=== PATIENT | female | born 1955 | race Caucasian/White ===

== ENCOUNTER → 2017-10-20 | Outpatient (CLI) | payer OTHER ==
[2017-10-20 11:47] LABS: HCT 39.8 % (34.0-46.0); HGB 13.4 gm/dL (11.4-16.0); MCH 30.1 pg (25.0-35.0); MCHC 33.7 g/dL (31.0-37.0); MCV 89.2 fL (80.0-100.0); Mean Platelet Volume 6.9; Platelet Count 301 k/uL (150-450); RBC 4.47 m/uL (3.80-5.40); RDW 13.3 % (11.5-15.5)
[2017-10-20 11:53] LABS: Potassium 4.8 mmol/L (3.5-5.1)
== END | disposition home or self-care (01) ==
LOC: LABPAT 11:07
PROVIDERS: ATTEND Internal Medicine Interventional Cardiology
DX: Z01.812 Encounter for preprocedural laboratory examination (principal); I25.810 Atherosclerosis of coronary artery bypass graft(s) without angina pectoris
CPT/HCPCS: 36415; 80051; 82565; 84520; 85027

== ENCOUNTER 2017-10-27 10:35 | Day surgery (SDC) | payer OTHER ==
[~2017-10-27 10:35] MED LIST: ALPRAZolam 0.25 MG TAB PO PRN; ALPRAZolam 0.5 MG TAB PO PRN; ASPIRIN 325 MG TAB PO STA; ATORVASTATIN 80 MG TAB PO STA; NITROGLYCERIN SL TABS 0.4 MG TAB SUBLINGUAL PRN; SODIUM CHLORIDE 0.9% 1,000 ML in EMPTY BAG 1 BAG IV ONE
[2017-10-27] MEDS ORDERED: SODIUM CHLORIDE 0.9% 1,000 ML IV ONE (10:55)
[2017-10-27] MEDS ORDERED: fentaNYL (PF) 50 MCG/ML 2 ML AMP ONE (12:53)
[2017-10-27] MEDS ORDERED: fentaNYL (PF) 50 MCG/ML 2 ML AMP IVP ONE (12:54)
[2017-10-27] MEDS ORDERED: LIDOCAINE 2% INJ 20 MG/ML SQ ONE (12:58)
[2017-10-27] MEDS ORDERED: IOPAMIDOL-370 125ML BTL INJ ONE (13:20)
[2017-10-27] MEDS ORDERED: IOPAMIDOL-370 100ML BTL INJ ONE (13:26)
[2017-10-27] MEDS ORDERED: RX INFO: IV CONTRAST WAS GIVEN 1 EACH MISC MISCELLANE PRN (13:38)
[2017-10-27] MEDS ORDERED: SODIUM CHLORIDE 0.9% 1,000 ML IV SCH (13:45)
--- NOTE | 2017-10-27 14:57 | CC ---
CARDIAC CATHETERIZATION REPORT Mrs. Linton is a 62-year-old female with known history of hypertension, hyperlipidemia, history of coronary artery disease, status post coronary artery bypass grafting in 2001, who since August has been complaining of chest discomfort, exertional in pattern. In view of that, recommendation was made regarding cardiac catheterization. The procedures as well as risks and complications were discussed with the patient who is in full understanding and agreement. PROCEDURE: Patient was brought to [facility] in a fasting semisedated state after receiving fentanyl and Benadryl and achieving moderate conscious sedated state. Using Xylocaine anesthesia and Seldinger technique, a 6-Nigerien sheath was introduced in the right femoral artery. Selective right and left coronary angiography performed using 6-Nigerien 4 bend right and left Natanael catheter multiple views of the coronary artery including hemiaxial views were obtained. Following that, the 6-Nigerien right Natanael catheter was used to cannulate the saphenous vein graft to the diagonal branch and the SHELLY. Images of the grafts were obtained. Following that, a 6-Nigerien tight pigtail catheters was introduced into the left ventricle and a 30 degree SESAY view of the left ventricle was obtained. Following that, catheter and sheaths were removed. Hemostasis was obtained with deployment of an Angio-Seal. There was no immediate complications. Patient is returned to her room in stable condition. FINDINGS: Left main: This vessel is totally occluded proximally with no antegrade flow. Right coronary artery: This vessel is totally occluded proximally with ipsilateral collaterals. Here is slow flow in the distal vessel. Saphenous vein graft to diagonal branch: The proximal distal anastomotic site are patent. The flow into the graft is brisk. There is no evidence of high-grade stenosis. DE JESUS to the left circumflex: The distal anastomotic site is patent. The flow into the OM is brisk. There is no evidence of high-grade stenosis. SHELLY to the LAD: The distal anastomotic site is patent. The flow in the LAD is brisk. There is no evidence of high-grade stenosis. Left ventriculogram: Left ventriculogram was performed in 30 degree SESAY view and revealed normal left ventricular size and systolic function. Ejection fraction is 55%. There was no significant mitral regurgitation. HEMODYNAMICS: There was no gradient across the aortic valve. The left ventricular end-diastolic pressure is 14-18 mmHg. CONCLUSION: 1. Totally occluded left main with no antegrade flow. 2. Chronically occluded right coronary artery with ipsilateral collaterals. 3. Patent DE JESUS to the left circumflex and patent SHELLY to the LAD. 4. Patent saphenous vein graft to diagonal branch. 5. Normal left ventricular size and systolic function. RECOMMENDATION: In view of the findings and anatomy, I recommend continue medical therapy and attempted angioplasty and stenting for chronic total occlusion of the right coronary artery. Those findings and recommendations were discussed with the patient and her family who are in full understanding and agreement. Duration of the procedure: 33 minutes. MMSHANNON / IJN: [id number] /
--- NOTE | 2017-10-27 15:03 | LTR ---
DATE OF SERVICE: 10/27/[address] Trujillo: I had he pleasure of performing coronary angiography on Mrs Linton at [facility] on October 27 and a full copy of procedure note will be forwarded to you. In brief, she was found to have severe triple-vessel disease with chronic occlusion of her left main and total occlusion of her right coronary artery which is new since 2001. Her bypass grafts are patent. At this time, I will continue medical therapy and I would recommend to proceed with an attempt at recanalization for chronic occluded right coronary artery. Depending on her progress, further recommendations will be made. Thank you again for allowing me to participate in her care. Please feel free to call for any questions. Sincerely, CINDY / FABIAN: [id number] /
[2017-10-27 19:15] VITALS: BP 126/60; PULSE 70; RESP 14; TEMP 98
[2017-10-27] MEDS ORDERED: ATORVASTATIN 40 MG TAB PO SCH (21:00)
[2017-10-27] MEDS ORDERED: METOPROLOL TARTRATE 50 MG TAB PO SCH (21:00)
[2017-10-27] MEDS ORDERED: LISINOPRIL 5 MG TAB PO SCH (21:00)
[2017-10-27] MEDS ORDERED: FAMOTIDINE 20 MG TAB PO SCH (21:00)
[2017-10-28] MEDS ORDERED: GLUCOSAMINE SULFATE PO SCH (09:00)
[2017-10-28] MEDS ORDERED: ISOSORBIDE MONONITRATE ER 60 MG TAB.ER.24H PO SCH (09:00)
[2017-10-28] MEDS ORDERED: ASPIRIN 325 MG TAB PO SCH (09:00)
[2017-10-28] MEDS ORDERED: MULTIVITAMINS, THERA 1 EACH TAB PO SCH (12:00)
== END 2017-10-27 20:35 | disposition home or self-care (01) ==
LOC: CATHCVL 10:35 → 3OBS 13:28 → CATHCVL 20:35
PROVIDERS: ATTEND Internal Medicine Interventional Cardiology
DX: I25.110 Atherosclerotic heart disease of native coronary artery with unstable angina pectoris (principal); I25.82 Chronic total occlusion of coronary artery; I10 Essential (primary) hypertension; E78.2 Mixed hyperlipidemia; Z95.1 Presence of aortocoronary bypass graft; I65.23 Occlusion and stenosis of bilateral carotid arteries; I73.9 Peripheral vascular disease, unspecified; Z82.49 Family history of ischemic heart disease and other diseases of the circulatory system; Z79.82 Long term (current) use of aspirin; Z79.899 Other long term (current) drug therapy
CPT/HCPCS: 93459; C1760; C1769 ×2; C1894; J2001; J3010; Q9967 ×2

== ENCOUNTER 2018-03-04 05:05 | Observation (INO) | payer OTHER ==
--- NOTE | 2018-03-04 05:59 | ED ---
GI Bleed HPI - General Chief complaint: GI Bleed Stated complaint: GI bleed Time Seen by Provider: 03/04/18 05:12 Source: EMS Mode of arrival: EMS Limitations: no limitations - History of Present Illness Initial comments: Jacqueline Michelle is a 62-year-old female who is transferred to our facility from an outside hospital for further evaluation of high risk GI bleeding. The patient has a past medical history most significant for coronary artery disease , status post CABG and a recent cardiac catheterization with 3 stents placed in her RCA at [facility]. After the initial stent placement patient had persistent left arm pain and a repeat cardiac catheterization was performed. Patient was then prescribed Brilinta, he received her first dose on along with her very last dose of Plavix. The patient has continued taking Brilenta and 81mg ASA daily since that time. Patient was discharged from the hospital on March 03. Patient port that she was feeling well at that time. She notes that around 6 PM on Tuesday evening she had a bloody bowel movement. She described it as dark red blood with clots. She has no history of GI bleeding in the past. Patient's most recent colonoscopy was approximately 4 years ago, she was told that it was normal and she was to follow -up in 10 years. Patient does have a history of diverticulitis but has not been having any abdominal pain or discomfort recently. The patient denies any lightheadedness, chest pain, palpitations or shortness of breath. She does report some transient nausea prior to owing to the outside hospital. Patient reports that she's had 3-4 bloody bowel movements between 6 PM on Tuesday evening and 1 AM on Tuesday morning. Upon arrival to our emergency department she has not had a bloody bowel movement approximately 5 hours. She's not expressing abdominal pain or discomfort. - Related Data Home Medications Medication Instructions Recorded Confirmed Aspirin 325 mg PO QAM 10/21/17 10/27/17 Atorvastatin [Lipitor] 40 mg PO HS 10/21/17 10/27/17 Glucosamine Sulfate 1 tab PO DAILY 10/21/17 10/27/17 Lisinopril [Zestril] 5 mg PO HS 10/21/17 10/27/17 Metoprolol Tartrate [Lopressor] 50 mg PO BID 10/21/17 10/27/17 Multivitamins, Thera [Multivitamin 1 tab PO DAILY 10/21/17 10/27/17 (formulary)] Nitroglycerin Sl Tabs [Nitrostat] 0.4 mg PO DIRECTED 10/21/17 10/27/17 Ranitidine HCl [Zantac] 150 mg PO BID 10/21/17 10/27/17 Previous Rx's Medication Instructions Recorded Isosorbide Mononitrate [Isosorbide 60 mg PO QAM #0 10/27/17 Mononitrate ER] Allergies Allergy/AdvReac Type Severity Reaction Status Date / Time latex Allergy Rash/Hives Verified 10/21/17 16:21 Review of Systems ROS Statement: Those systems with pertinent positive or pertinent negative responses have been documented in the HPI. ROS Other: All systems not noted in ROS Statement are negative. Past Medical History History of Any Multi-Drug Resistant Organisms: None Reported Past Surgical History: Coronary Bypass/CABG Additional Past Surgical History / Comment(s): triple by pass 2001, [address] Past Psychological History: Anxiety Smoking Status: Never smoker Past Alcohol Use History: Occasional Past Drug Use History: None Reported General Exam - General Exam Comments Initial Comments: GENERAL: Patient is well-developed and well-nourished. Patient is nontoxic and well- hydrated and is in no distress. HENT: Normocephalic, Atraumatic. Neck is soft and supple. No significant lymphadenopathy is noted. Oropharynx is clear. Moist mucous membranes. Neck has full range of motion without eliciting any pain. EYES: The sclera were anicteric and conjunctiva were pink and moist. Extraocular movements were intact and pupils were equal round and reactive to light. Eyelids were unremarkable. PULMONARY: Unlabored respirations. Good breath sounds bilaterally. No audible rales rhonchi or wheezing was noted. CARDIOVASCULAR: There is a regular rate and rhythm without any murmurs gallops or rubs. ABDOMEN: Soft and nontender with normal bowel sounds. Bright red blood per rectum SKIN: Skin is clear with no lesions or rashes and otherwise unremarkable. Bruising on right wrist and in bilateral groins consistent with recent arterial access NEUROLOGIC: Patient is alert and oriented x3. Cranial nerves II through XII are grossly intact. Motor and sensory are also intact. Normal speech, volume and content. Symmetrical smile. MUSCULOSKELETAL: Normal extremities with adequate strength and full range of motion. No lower extremity swelling or edema. No calf tenderness. LYMPHATICS: No significant lymphadenopathy is noted PSYCHIATRIC: Normal psychiatric evaluation. Limitations: no limitations Limitations: no limitations Course Vital Signs 03/04/18 03/04/18 03/04/18 05:06 05:20 05:40 Temperature 99 F Pulse Rate 85 73 83 Respiratory 16 16 11 L Rate Blood Pressure 138/76 138/76 158/75 O2 Sat by Pulse 96 97 97 Oximetry 03/04/18 03/04/18 06:40 06:58 Temperature Pulse Rate 78 89 Respiratory 16 16 Rate Blood Pressure 155/72 O2 Sat by Pulse 97 97 Oximetry Medical Decision Making - Medical Decision Making Patient care was discussed with the transferring physician prior to transfer Hemodynamically stable 62-year-old female with a lower GI bleed currently on Brilinta and aspirin - patient has established care with cardiology at our hospital therefore requested transfer Outside labs were reviewed CBC and CMP were reviewed, hemoglobin was noted to be 13.1, AST mildly elevated at 69, INR 1.05 Repeat labs, type and screen were obtained Rectal exam with bright red blood per rectum Repeat labs reveal a hemoglobin of 11.9, patient did receive IV fluids so this is likely related to blood loss as well as dilutional, we will trend his hemoglobin Troponin was obtained here and was noted be elevated, this is likely related to the 2 cardiac catheterizations the patient had during the week, patient has not had any chest pain, palpitations or shortness of breath, no signs of acute coronary syndrome Patient care was discussed with cardiology who recommended the patient have an emergent GI consult, recommends holding oral anticoagulation this morning would like to resume this evening if it is safe to do so Patient care was discussed with the psychiatric social worker supervisor Dr. Sabillon who accepts the patient to the ICU for lower GI bleeding Patient care was discussed with the [facility] hospitalist who accepts the admission - Lab Data Result diagrams: 03/04/18 05:54 03/04/18 05:54 Lab Results 03/04/18 03/04/18 03/04/18 Range/Units 05:54 05:54 05:54 WBC 10.3 (3.8-10.6) k/uL RBC 4.07 (3.80-5.40) m/uL Hgb 11.9 (11.4-16.0) gm/dL Hct 35.6 (34.0-46.0) % MCV 87.4 (80.0-100.0) fL MCH 29.3 (25.0-35.0) pg MCHC 33.6 (31.0-37.0) g/dL RDW 13.9 (11.5-15.5) % Plt Count 185 (150-450) k/uL Neutrophils % 83 % Lymphocytes % 11 % Monocytes % 5 % Eosinophils % 1 % Basophils % 0 % Neutrophils # 8.5 H (1.3-7.7) k/uL Lymphocytes # 1.1 (1.0-4.8) k/uL Monocytes # 0.5 (0-1.0) k/uL Eosinophils # 0.1 (0-0.7) k/uL Basophils # 0.0 (0-0.2) k/uL PT 10.6 (9.0-12.0) sec INR 1.1 (<1.2) APTT 20.5 L (22.0-30.0) sec Sodium 138 (137-145) mmol/L Potassium 3.7 (3.5-5.1) mmol/L Chloride 108 H (98-107) mmol/L Carbon Dioxide 26 (22-30) mmol/L Anion Gap 4 mmol/L BUN 18 H (7-17) mg/dL Creatinine 0.76 (0.52-1.04) mg/dL Est GFR (CKD-EPI)AfAm >90 (>60 ml/min/1.73 sqM) Est GFR (CKD-EPI)NonAf 84 (>60 ml/min/1.73 sqM) Glucose 106 H (74-99) mg/dL Calcium 8.6 (8.4-10.2) mg/dL Total Bilirubin 0.9 (0.2-1.3) mg/dL AST 52 H (14-36) U/L ALT 30 (9-52) U/L Alkaline Phosphatase 58 (38-126) U/L Troponin I (0.000-0.034) ng/mL Total Protein 5.5 L (6.3-8.2) g/dL Albumin 3.1 L (3.5-5.0) g/dL Blood Type Blood Type Recheck Antibody Screen Spec Expiration Date 03/04/18 03/04/18 Range/Units 05:54 05:54 WBC (3.8-10.6) k/uL RBC (3.80-5.40) m/uL Hgb (11.4-16.0) gm/dL Hct (34.0-46.0) % MCV (80.0-100.0) fL MCH (25.0-35.0) pg MCHC (31.0-37.0) g/dL RDW (11.5-15.5) % Plt Count (150-450) k/uL Neutrophils % % Lymphocytes % % Monocytes % % Eosinophils % % Basophils % % Neutrophils # (1.3-7.7) k/uL Lymphocytes # (1.0-4.8) k/uL Monocytes # (0-1.0) k/uL Eosinophils # (0-0.7) k/uL Basophils # (0-0.2) k/uL PT (9.0-12.0) sec INR (<1.2) APTT (22.0-30.0) sec Sodium (137-145) mmol/L Potassium (3.5-5.1) mmol/L Chloride (98-107) mmol/L Carbon Dioxide (22-30) mmol/L Anion Gap mmol/L BUN (7-17) mg/dL Creatinine (0.52-1.04) mg/dL Est GFR (CKD-EPI)AfAm (>60 ml/min/1.73 sqM) Est GFR (CKD-EPI)NonAf (>60 ml/min/1.73 sqM) Glucose (74-99) mg/dL Calcium (8.4-10.2) mg/dL Total Bilirubin (0.2-1.3) mg/dL AST (14-36) U/L ALT (9-52) U/L Alkaline Phosphatase (38-126) U/L Troponin I 6.410 H* (0.000-0.034) ng/mL Total Protein (6.3-8.2) g/dL Albumin (3.5-5.0) g/dL Blood Type A Negative Blood Type Recheck No Antibody Screen NEGATIVE Spec Expiration Date 03/07/2018 - 9993 - EKG Data EKG Comments: EKG obtained at 6 AM, rate of 76, rhythm is sinus, there is a normal axis, there is right bundle-branch block, MA is 128, QRS is 120, QTC is 46. There are no previous EKGs for comparison. Disposition Clinical Impression: Lower GI bleed, Anticoagulated Disposition: ADMITTED IP TO THIS HOSP Condition: Stable
[2018-03-04 06:12] LABS: Basophils % (A) 0 %; Eosinophils # (A) 0.1 k/uL (0-0.7); Eosinophils % (A) 1 %; HCT 35.6 % (34.0-46.0); HGB 11.9 gm/dL (11.4-16.0); Lymphocytes # (A) 1.1 k/uL (1.0-4.8); Lymphocytes % (A) 11 %; MCH 29.3 pg (25.0-35.0); MCHC 33.6 g/dL (31.0-37.0); MCV 87.4 fL (80.0-100.0); Mean Platelet Volume 6.6; Monocytes # (A) 0.5 k/uL (0-1.0); Monocytes % (A) 5 %; Neutrophils # (A) 8.5 k/uL (1.3-7.7); Neutrophils % (A) 83 %; Platelet Count 185 k/uL (150-450); RBC 4.07 m/uL (3.80-5.40); RDW 13.9 % (11.5-15.5); WBC 10.3 k/uL (3.8-10.6)
[2018-03-04 06:29] LABS: INR 1.1 (<1.2); Prothrombin Time 10.6 sec (9.0-12.0)
[2018-03-04 06:31] LABS: ALT 30 U/L (9-52); AST 52 U/L (14-36); Albumin 3.1 g/dL (3.5-5.0); Alkaline Phosphatase 58 U/L (38-126); Anion Gap 4 mmol/L; Blood Urea Nitrogen 18 mg/dL (7-17); Calcium 8.6 mg/dL (8.4-10.2); Carbon Dioxide 26 mmol/L (22-30); Chloride 108 mmol/L (98-107); Glucose 106 mg/dL (74-99); Partial Thromboplastin Time 20.5 sec (22.0-30.0); Potassium 3.7 mmol/L (3.5-5.1); Sodium 138 mmol/L (137-145); Total Bilirubin 0.9 mg/dL (0.2-1.3); Total Protein 5.5 g/dL (6.3-8.2)
[2018-03-04] MEDS ORDERED: NALOXONE 0.4 MG/ML 1 ML VIAL IV PRN (07:30)
[2018-03-04 09:27] LABS: Glucose,Whole Blood 100 mg/dL (75-99)
--- NOTE | 2018-03-04 10:18 | P.CNPUL ---
History of Present Illness Consult date: 03/04/18 Requesting physician: Zahira Shrestha Reason for consult: other (Critical care management) Chief complaint: Bright red bleeding from the rectum History of present illness: This is a very pleasant 62-year-old female patient who follows with Dr. Montesinos as her primary care physician. She has a history of hypertension, hyperlipidemia, gastroesophageal reflux disease. Chest has a significant history of coronary artery disease and is status post coronary artery bypass grafting in 2001. She had recently undergone cardiac catheterization in October 2017 and was found to have a totally occluded left main with no antegrade flow, chronically occluded right coronary artery with ipsilateral collaterals, patent DE JESUS to the circumflex and patent SHELLY to LAD, patent saphenous vein graft to diagonal branch. Normal left ventricular size and systolic function. An attempt to open the RCA was unsuccessful. She was subsequently referred to [facility] and on 01/02/2018 underwent a rotator procedure to open the coronary artery. On 03/01/18 she received 3 stent placements. Details of which are not available at this time. She had ongoing left arm discomfort and on 03/02/2018 she had another catheterization all stents were patent. She was initiated on aspirin and Mylanta. She was also given 1 dose of Plavix on 2017. She presented to [facility] last evening after having 6 bright red bowel movements at home. She had a seventh one earlier today. Based on the GI bleeding she was transferred here to the emergency room. Hemoglobin 11.9. She is seen today in consultation in the intensive care unit. She is currently awake and alert in no acute distress. She denies any chest pain, palpitations lightheadedness or dizziness. Her troponin is found to be 6.41. EKG shows a right bundle branch block pattern. She denies any shortness of breath, cough or congestion. She is maintaining O2 saturations in the mid 90s on room air. She's afebrile. Currently hemodynamically stable. She does have a history of diverticulosis. She had a colonoscopy 4 years ago that was reported as normal according to the patient. She has been typed and crossmatched. Review of Systems Constitutional: Reports fatigue, Reports weakness Eyes: denies blurred vision, denies decreased vision Ears: deny: decreased hearing Ears, nose, mouth and throat: Denies headache, Denies sore throat Cardiovascular: Denies chest pain, Denies shortness of breath Respiratory: Denies cough Gastrointestinal: Reports abdominal pain, Reports hematochezia Genitourinary: Denies dysuria, Denies hematuria Musculoskeletal: Denies myalgias Integumentary: Denies pruritus, Denies rash Neurological: Denies numbness, Denies weakness Psychiatric: Reports anxiety Endocrine: Denies fatigue, Denies weight change Hematologic/Lymphatic: Reports easy bleeding Allergic/Immunologic: Reports as per HPI Past Medical History History of Any Multi-Drug Resistant Organisms: None Reported Past Surgical History: Coronary Bypass/CABG Additional Past Surgical History / Comment(s): triple by pass 2001, [address] Past Psychological History: Anxiety Smoking Status: Never smoker Past Alcohol Use History: Occasional Past Drug Use History: None Reported Medications and Allergies Home Medications Medication Instructions Recorded Confirmed Type Aspirin 325 mg PO QAM 10/21/17 10/27/17 History Atorvastatin [Lipitor] 40 mg PO HS 10/21/17 10/27/17 History Glucosamine Sulfate 1 tab PO DAILY 10/21/17 10/27/17 History Lisinopril [Zestril] 5 mg PO HS 10/21/17 10/27/17 History Metoprolol Tartrate [Lopressor] 50 mg PO BID 10/21/17 10/27/17 History Multivitamins, Thera [Multivitamin 1 tab PO DAILY 10/21/17 10/27/17 History (formulary)] Nitroglycerin Sl Tabs [Nitrostat] 0.4 mg PO DIRECTED 10/21/17 10/27/17 History Ranitidine HCl [Zantac] 150 mg PO BID 10/21/17 10/27/17 History Isosorbide Mononitrate [Isosorbide 60 mg PO QAM #0 10/27/17 10/27/17 Rx Mononitrate ER] Allergies Allergy/AdvReac Type Severity Reaction Status Date / Time latex Allergy Rash/Hives Verified 10/21/17 16:21 Physical Exam Vitals: Vital Signs Temp Pulse Resp BP Pulse Ox 03/04/18 09:50 98.7 F 76 15 95 03/04/18 09:40 86 16 94 L 03/04/18 09:30 85 14 133/74 95 03/04/18 09:20 80 12 95 03/04/18 08:14 99.1 F 81 18 146/89 95 03/04/18 06:58 89 16 155/72 97 03/04/18 06:40 78 16 97 03/04/18 05:40 83 11 L 158/75 97 03/04/18 05:20 73 16 138/76 97 03/04/18 05:06 99 F 85 16 138/76 96 Intake and Output 03/03/18 03/04/18 03/04/18 22:59 06:59 14:59 Other: Weight 77.111 kg - Constitutional General appearance: average body habitus, mild distress - EENT Eyes: EOMI, PERRLA ENT: hearing grossly normal Ears: bilateral: normal - Neck Neck: normal ROM Carotids: bilateral: upstroke normal Thyroid: bilateral: normal size - Respiratory Respiratory: bilateral: CTA - Cardiovascular Rhythm: regular Heart sounds: normal: S1, S2 - Gastrointestinal General gastrointestinal: hyperactive bowel sounds - Integumentary Integumentary: normal turgor - Neurologic Neurologic: CNII-XII intact - Musculoskeletal Musculoskeletal: generalized weakness - Psychiatric Psychiatric: A&O x's 3, appropriate affect, intact judgment & insight Results - Laboratory Findings CBC and BMP: 03/04/18 05:54 03/04/18 05:54 PT/INR, D-dimer PT 10.6 sec (9.0-12.0) 03/04/18 05:54 INR 1.1 (<1.2) 03/04/18 05:54 Abnormal lab findings: Abnormal Labs 03/04/18 03/04/18 03/04/18 05:54 05:54 05:54 Neutrophils # 8.5 H APTT 20.5 L Chloride 108 H BUN 18 H Glucose 106 H POC Glucose (mg/dL) AST 52 H Troponin I Total Protein 5.5 L Albumin 3.1 L 03/04/18 03/04/18 05:54 09:26 Neutrophils # APTT Chloride BUN Glucose POC Glucose (mg/dL) 100 H AST Troponin I 6.410 H* Total Protein Albumin Assessment and Plan Assessment: Impression: #1 Acute lower gastrointestinal bleeding of unclear etiology. Suspect diverticuli is present does have a history of diverticulosis. Colonoscopy 4 years ago was reported as normal. #2 Coronary artery disease with 3 stents placed on 03/01/2018 and was initiated on aspirin and plan Reglan. Repeat catheterization on 03/02/2018 showed patent stents and one additional Plavix tablet was given that day. #3 Prior history of coronary artery disease with coronary artery bypass grafting in 2001. #4 Hyperlipidemia. #5 Hypertension. #6 History of gastroesophageal reflux disease. Plan: The patient was seen and evaluated by Dr. Parra. He did have concerns regarding possible transfer back to [facility] due to the patient's predicament of 3 fresh stent placements and now gastrointestinal bleeding. Cardiology has been consulted and will make that determination. In the interim we'll continue with her current treatment plan. We will get her started on IV Protonix 40 mg IV twice a day. We'll continue to monitor her hemoglobins. Continue to observe for GI bleed. Continue to monitor her here closely in the intensive care unit. We'll continue to follow. I, the cosigning physician, performed a history & physical examination of the patient. Lungs sounds are clear. Maintaining good O2 saturations in the 90s on room air. I discussed the assessment and plan of care with my nurse practitioner, Milady Zamora. I attest to the above note as dictated by her. Time with Patient: Greater than 30
[2018-03-04 13:12] LABS: HCT 33.5 % (34.0-46.0); HGB 11.6 gm/dL (11.4-16.0); MCH 31.1 pg (25.0-35.0); MCHC 34.5 g/dL (31.0-37.0); MCV 90.2 fL (80.0-100.0); Mean Platelet Volume 6.5; Platelet Count 188 k/uL (150-450); RBC 3.71 m/uL (3.80-5.40); RDW 13.8 % (11.5-15.5); WBC 10.5 k/uL (3.8-10.6)
--- NOTE | 2018-03-04 14:26 | P.CRDCN ---
History of Present Illness Consult date: 03/04/18 Chief complaint: Upper GI bleeding History of present illness: This is a pleasant 62-year-old female patient who sees Dr. Mast in the office as an outpatient with a past medical history significant for coronary artery disease, hypertension, dyslipidemia, presented to the hospital complaining of blood in the stool. The patient was experiencing intermittent episodes of chest discomfort concerning for angina. She underwent a heart catheterization in October 2017 and that revealed totally occluded left main and right coronary artery with patent DE JESUS to left circumflex and patent SHELLY to LAD as well as patent saphenous vein graft to diagonal branch. The right coronary artery was unprotected. The patient just underwent stenting of the right coronary artery which was chronically occluded at [facility]. The procedure was performed on Tuesday. The patient was discharged home on dual antiplatelet therapy including Brilinta. Before that the patient was on Plavix. She was in her usual state of health until yesterday when she started experiencing intermittent episodes of blood in the stool. No abdominal discomfort. No nausea or vomiting. No fever or chills. No chest pain or chest discomfort. No shortness of breath. No dizziness or lightheadedness. No syncope. The patient did have about 7 episodes of blood in the stool. Initially she was presented to [facility] but she was transferred to [facility]. The hemoglobin drop about 1 g. The dual antiplatelet therapy where put on hold. The patient remains asymptomatic. She remains hemodynamically stable. A GI consult is placed and the patient is in process to be seen in the next few hours. I would recommend restart the patient on Plavix as well as baby aspirin. Continue monitor the hemoglobin very closely. Blood transfusion for any hemoglobin drop below 7 or below 8 if the patient developed any symptoms of chest pain or chest discomfort. The troponin is elevated but this is because of the recent percutaneous coronary intervention which was performed 2 days ago. Past Medical History Past Medical History: Coronary Artery Disease (CAD), GERD/Reflux, Hyperlipidemia , Hypertension History of Any Multi-Drug Resistant Organisms: None Reported Past Surgical History: Coronary Bypass/CABG Additional Past Surgical History / Comment(s): triple by pass 2001, [address] Past Anesthesia/Blood Transfusion Reactions: No Reported Reaction Date of Last Stent Placement:: 03/01/18 Past Psychological History: Anxiety Smoking Status: Never smoker Past Alcohol Use History: Occasional Past Drug Use History: None Reported - Past Family History Mother Family Medical History: Cancer, Coronary Artery Disease (CAD) Additional Family Medical History / Comment(s): Cervical Father Family Medical History: COPD, Prostate Disorder Medications and Allergies Home Medications Medication Instructions Recorded Confirmed Type Atorvastatin [Lipitor] 40 mg PO HS 10/21/17 03/04/18 History Glucosamine Sulfate 500 mg PO DAILY 10/21/17 03/04/18 History Lisinopril [Zestril] 5 mg PO HS 10/21/17 03/04/18 History Metoprolol Tartrate [Lopressor] 50 mg PO BID 10/21/17 03/04/18 History Nitroglycerin Sl Tabs [Nitrostat] 0.4 mg PO Q5M PRN 10/21/17 03/04/18 History Ranitidine HCl [Zantac] 150 mg PO BID 10/21/17 03/04/18 History Aspirin EC [Ecotrin Low Dose] 81 mg PO DAILY 03/04/18 03/04/18 History Ticagrelor [Brilinta] 90 mg PO BID 03/04/18 03/04/18 History Allergies Allergy/AdvReac Type Severity Reaction Status Date / Time latex Allergy Rash/Hives Verified 03/04/18 11:44 Physical Exam Vitals: Vital Signs Temp Pulse Resp BP Pulse Ox 03/04/18 14:00 87 19 143/68 94 L 03/04/18 13:30 80 22 148/65 93 L 03/04/18 13:00 85 12 144/74 96 03/04/18 12:30 84 21 139/54 96 03/04/18 12:00 98.7 F 82 17 144/66 95 03/04/18 11:30 77 12 124/69 95 03/04/18 11:00 86 14 134/72 96 03/04/18 10:30 80 15 130/68 96 03/04/18 10:00 78 17 136/74 95 03/04/18 09:50 98.7 F 76 15 95 03/04/18 09:40 86 16 94 L 03/04/18 09:30 85 14 133/74 95 03/04/18 09:20 80 12 95 03/04/18 08:14 99.1 F 81 18 146/89 95 03/04/18 06:58 89 16 155/72 97 03/04/18 06:40 78 16 97 03/04/18 05:40 83 11 L 158/75 97 03/04/18 05:20 73 16 138/76 97 03/04/18 05:06 99 F 85 16 138/76 96 Intake and Output 03/03/18 03/04/18 03/04/18 22:59 06:59 14:59 Output Total 0 Balance 0 Output: Urine 0 Other: Voiding Method Bedside Commode # Voids 0 # Bowel Movements 0 Weight 77.111 kg 54.5 kg - Constitutional General appearance: no acute distress - Respiratory Respiratory: bilateral: CTA - Cardiovascular Rhythm: regular Heart sounds: normal: S1, S2 Results 03/04/18 12:54 03/04/18 05:54 Cardiac Enzymes 03/04/18 03/04/18 Range/Units 05:54 05:54 AST 52 H (14-36) U/L Troponin I 6.410 H* (0.000-0.034) ng/mL Coagulation 03/04/18 Range/Units 05:54 PT 10.6 (9.0-12.0) sec APTT 20.5 L (22.0-30.0) sec CBC 03/04/18 03/04/18 Range/Units 05:54 12:54 WBC 10.3 10.5 (3.8-10.6) k/uL RBC 4.07 3.71 L (3.80-5.40) m/uL Hgb 11.9 11.6 (11.4-16.0) gm/dL Hct 35.6 33.5 L (34.0-46.0) % Plt Count 185 188 (150-450) k/uL Comprehensive Metabolic Panel 03/04/18 Range/Units 05:54 Sodium 138 (137-145) mmol/L Potassium 3.7 (3.5-5.1) mmol/L Chloride 108 H (98-107) mmol/L Carbon Dioxide 26 (22-30) mmol/L BUN 18 H (7-17) mg/dL Creatinine 0.76 (0.52-1.04) mg/dL Glucose 106 H (74-99) mg/dL Calcium 8.6 (8.4-10.2) mg/dL AST 52 H (14-36) U/L ALT 30 (9-52) U/L Alkaline Phosphatase 58 (38-126) U/L Total Protein 5.5 L (6.3-8.2) g/dL Albumin 3.1 L (3.5-5.0) g/dL Current Medications Generic Name Dose Route Start Last Admin Trade Name Freq PRN Reason Stop Dose Admin Naloxone HCl 0.2 mg 03/04/18 07:30 Narcan IV Q2M PRN Opioid Reversal Pantoprazole Sodium 40 mg 03/04/18 10:30 Protonix IVP BID PIETER Intake and Output 03/03/18 03/04/18 03/04/18 22:59 06:59 14:59 Output Total 0 Balance 0 Output: Urine 0 Other: Voiding Method Bedside Commode # Voids 0 # Bowel Movements 0 Weight 77.111 kg 54.5 kg Patient Weight 03/05/18 06:59 Weight 54.5 kg 03/04/18 12:54 03/04/18 05:54 Assessment and Plan Assessment: Assessment #1 gastrointestinal bleeding of unknown etiology at this point #2 CAD and status post RCA stenting #3 hypertension #4 dyslipidemia Plan #1 restart the patient on Plavix as well as baby aspirin #2 continue monitor the hemoglobin #3 blood transfusion for any hemoglobin below 7 or below 8 with symptoms #4 follow-up with the patient. Thank you for allowing us participate in her care and we'll continue following up with the patient
[2018-03-04] MEDS ORDERED: CLOPIDOGREL 75 MG TAB PO STA (14:36)
[2018-03-04] MEDS ORDERED: Potassium Replacement Protocol 1 EACH MISC MISCELLANE PRN (15:30)
[2018-03-04] MEDS: PANTOPRAZOLE 40 MG/10 ML VIAL IVP SCH ×2 (15:36→20:50)
[2018-03-04] MEDS: ASPIRIN 81 MG PO SCH (15:36)
[2018-03-04] MEDS ORDERED: POTASSIUM CHLORIDE ER 20 MEQ TAB.ER PO SCH (16:00)
[2018-03-04] MEDS: ONDANSETRON 4 MG/2 ML VIAL IVP PRN (16:46)
--- NOTE | 2018-03-04 23:53 | P.CONS ---
History of Present Illness - Reason for Consult Consult date: 03/04/18 Blood per rectum Requesting physician: Zahira Shrestha - Chief Complaint Blood per rectum - History of Present Illness The patient is a pleasant 62-year-old female with a known history of coronary artery disease status post recent stent placement less than one week ago, diverticulosis, GERD, hypertension and dyslipidemia who presented to the hospital with complaints of bright blood per rectum. The patient reports multiple episodes, at least 10, of painless bright red blood per rectum prior to presentation. She does report some cramping lower abdominal pain with the bowel movements, but no rubén pain in the abdomen with the episodes. She denies any nausea or vomiting. Since arrival to the hospital she's had no further rectal bleeding. She denies any prior episode of rectal bleeding. She reports that her last EGD and colonoscopy were approximately 3 years ago and that they were essentially normal. She did have a recent cardiac catheterization with stent placement and was started on a new anticoagulant after the procedure. Currently she is denying any weakness, lethargy, change in mentation or other complaints. Review of Systems Constitutional: Denies any fatigue, change in weight Eyes: Denies any change in vision, pain denies Nose: Denies any congestion, rhinorrhea Ears: Denies any change in hearing, new onset tinnitus Lungs: Denies any wheezing, shortness of breath, cough, or hemoptysis Cardiac: Denies any pain in chest, shortness of breath, lower extremity swelling Abdomen: As per history of present illness Skin: Denies any new rashes or pruritus Urine: Denies any dysuria or hematuria Neuro: Denies any change in mental status, new focal deficits Past Medical History Past Medical History: Coronary Artery Disease (CAD), GERD/Reflux, Hyperlipidemia , Hypertension History of Any Multi-Drug Resistant Organisms: None Reported Past Surgical History: Coronary Bypass/CABG Additional Past Surgical History / Comment(s): triple by pass 2001, [address] Past Anesthesia/Blood Transfusion Reactions: No Reported Reaction Date of Last Stent Placement:: 03/01/18 Past Psychological History: Anxiety Smoking Status: Never smoker Past Alcohol Use History: Occasional Past Drug Use History: None Reported - Past Family History Mother Family Medical History: Cancer, Coronary Artery Disease (CAD) Additional Family Medical History / Comment(s): Cervical Father Family Medical History: COPD, Prostate Disorder Medications and Allergies Home Medications Medication Instructions Recorded Confirmed Type Atorvastatin [Lipitor] 40 mg PO HS 10/21/17 03/04/18 History Glucosamine Sulfate 500 mg PO DAILY 10/21/17 03/04/18 History Lisinopril [Zestril] 5 mg PO HS 10/21/17 03/04/18 History Metoprolol Tartrate [Lopressor] 50 mg PO BID 10/21/17 03/04/18 History Nitroglycerin Sl Tabs [Nitrostat] 0.4 mg PO Q5M PRN 10/21/17 03/04/18 History Ranitidine HCl [Zantac] 150 mg PO BID 10/21/17 03/04/18 History Aspirin EC [Ecotrin Low Dose] 81 mg PO DAILY 03/04/18 03/04/18 History Ticagrelor [Brilinta] 90 mg PO BID 03/04/18 03/04/18 History Allergies Allergy/AdvReac Type Severity Reaction Status Date / Time latex Allergy Rash/Hives Verified 03/04/18 11:44 Physical Exam Vitals: Vital Signs Temp Pulse Resp BP Pulse Ox 03/04/18 23:00 73 20 129/64 97 03/04/18 22:00 79 19 138/66 93 L 03/04/18 21:00 81 19 137/53 95 03/04/18 20:00 98.1 F 79 20 135/65 95 03/04/18 19:00 82 16 141/67 93 L 03/04/18 18:30 85 20 129/56 95 03/04/18 18:00 93 17 140/54 95 03/04/18 17:30 91 23 126/54 94 L 03/04/18 17:00 78 17 122/71 94 L 03/04/18 16:30 79 15 138/62 94 L 03/04/18 16:00 98.7 F 80 14 133/64 96 03/04/18 15:30 84 13 128/65 96 03/04/18 15:00 80 21 137/63 95 03/04/18 14:30 78 21 142/62 95 03/04/18 14:00 87 19 143/68 94 L 03/04/18 13:30 80 22 148/65 93 L 03/04/18 13:00 85 12 144/74 96 03/04/18 12:30 84 21 139/54 96 03/04/18 12:00 98.7 F 82 17 144/66 95 03/04/18 11:30 77 12 124/69 95 03/04/18 11:00 86 14 134/72 96 03/04/18 10:30 80 15 130/68 96 03/04/18 10:00 78 17 136/74 95 03/04/18 09:50 98.7 F 76 15 95 03/04/18 09:40 86 16 94 L 03/04/18 09:30 85 14 133/74 95 03/04/18 09:20 80 12 95 03/04/18 08:14 99.1 F 81 18 146/89 95 03/04/18 06:58 89 16 155/72 97 03/04/18 06:40 78 16 97 03/04/18 05:40 83 11 L 158/75 97 03/04/18 05:20 73 16 138/76 97 03/04/18 05:06 99 F 85 16 138/76 96 Intake and Output 03/04/18 03/04/18 03/05/18 14:59 22:59 06:59 Output Total 0 300 Balance 0 -300 Output: Urine 0 300 Other: Voiding Method Bedside Commode Bedside Commode Bedside Commode # Voids 0 0 0 # Bowel Movements 0 0 0 Weight 54.5 kg Constitutional: Lying in bed in no apparent distress Head: normocephalic/atraumatic Eyes: No icterus, no injection Mouth: Moist mucous membranes Nose: No discharge noted Neck: Trachea midline Lungs: Normal air entry in all lung sears, no wheezing appreciated Abdomen: Soft, nontender, nondistended, normal bowel sounds. No guarding or rigidity Skin: No rashes, no jaundice Neuro: Awake alert and oriented 3, no focal deficits Results CBC & Chem 7: 03/05/18 04:52 03/05/18 04:52 Labs: Abnormal Lab Results - Last 24 Hours (Table) 03/04/18 03/04/18 03/04/18 Range/Units 05:54 05:54 05:54 RBC (3.80-5.40) m/uL Hct (34.0-46.0) % Neutrophils # 8.5 H (1.3-7.7) k/uL APTT 20.5 L (22.0-30.0) sec Chloride 108 H (98-107) mmol/L BUN 18 H (7-17) mg/dL Glucose 106 H (74-99) mg/dL POC Glucose (mg/dL) (75-99) mg/dL AST 52 H (14-36) U/L Troponin I (0.000-0.034) ng/mL Total Protein 5.5 L (6.3-8.2) g/dL Albumin 3.1 L (3.5-5.0) g/dL 03/04/18 03/04/18 03/04/18 Range/Units 05:54 09:26 12:54 RBC 3.71 L (3.80-5.40) m/uL Hct 33.5 L (34.0-46.0) % Neutrophils # (1.3-7.7) k/uL APTT (22.0-30.0) sec Chloride (98-107) mmol/L BUN (7-17) mg/dL Glucose (74-99) mg/dL POC Glucose (mg/dL) 100 H (75-99) mg/dL AST (14-36) U/L Troponin I 6.410 H* (0.000-0.034) ng/mL Total Protein (6.3-8.2) g/dL Albumin (3.5-5.0) g/dL Assessment and Plan (1) Anemia, blood loss Narrative/Plan: Anemia of acute blood loss secondary to gastrointestinal bleeding with the patient presenting with essentially painless bright red blood per rectum. Current Visit: Yes Status: Acute Code(s): D50.0 - IRON DEFICIENCY ANEMIA SECONDARY TO BLOOD LOSS (CHRONIC) SNOMED Code(s): 265609999 (2) Lower GI bleed Narrative/Plan: Painless bright red blood per rectum likely representing diverticular bleed or hemorrhoidal bleeding. Also on the differential bleeding from AVM, less likely malignancy, or other etiology. Bleeding has appeared to slow down at this time. Patient is back on anticoagulation for recent cardiac catheterization with stent placement. Current Visit: Yes Status: Acute Code(s): K92.2 - GASTROINTESTINAL HEMORRHAGE, UNSPECIFIED SNOMED Code(s): 14689849 Plan: Supportive care Okay for liquids Okay to restart antiplatelet and anticoagulation at this time given recent stent placement Continue to monitor hemoglobin and hematocrit and transfuse as needed Extensive discussion with the patient and her who is bedside about need for endoscopic intervention, this time we will follow the patient closely and monitor her hemoglobin and symptoms and if further bleeding occurs we'll discuss the need for endoscopic evaluation Patient reports preference of waiting until anticoagulation can be held to perform endoscopy Thank you for allowing us to participate in the care of this patient, we will continue to follow
[2018-03-05 05:45] LABS: Basophils % (A) 0 %; Eosinophils # (A) 0.1 k/uL (0-0.7); Eosinophils % (A) 1 %; HCT 32.9 % (34.0-46.0); HGB 10.9 gm/dL (11.4-16.0); Lymphocytes # (A) 1.1 k/uL (1.0-4.8); Lymphocytes % (A) 13 %; MCH 29.4 pg (25.0-35.0); Mean Platelet Volume 6.7; Monocytes # (A) 0.4 k/uL (0-1.0); Monocytes % (A) 5 %; Neutrophils # (A) 6.8 k/uL (1.3-7.7); Neutrophils % (A) 81 %; Platelet Count 183 k/uL (150-450); RBC 3.69 m/uL (3.80-5.40); RDW 13.8 % (11.5-15.5); WBC 8.4 k/uL (3.8-10.6)
[2018-03-05 06:05] LABS: Anion Gap 5 mmol/L; Blood Urea Nitrogen 16 mg/dL (7-17); Calcium 8.9 mg/dL (8.4-10.2); Carbon Dioxide 25 mmol/L (22-30); Chloride 107 mmol/L (98-107); Glucose 92 mg/dL (74-99); Magnesium 1.9 mg/dL (1.6-2.3); Phosphorus 3.9 mg/dL (2.5-4.5); Potassium 4.2 mmol/L (3.5-5.1); Sodium 137 mmol/L (137-145)
[2018-03-05] MEDS ORDERED: Magnesium Replacement Protocol 1 EACH MISC MISCELLANE PRN (06:37)
--- NOTE | 2018-03-05 06:40 | XR ---
EXAMINATION TYPE: XR chest 1V DATE OF EXAM: 03/05/2018 HISTORY: recent cardiac surgery. REFERENCE: NONE. FINDINGS: There has been a midline sternotomy. The lungs are clear. Pleural space are clear. Heart size upper limits of normal. IMPRESSION: NO ACTIVE INTRATHORACIC DISEASE.
[2018-03-05] MEDS: MAGNESIUM SULFATE-D5W PMX 1 GM in DEXTROSE/WATER 1 100ML.BAG IVPB SCH ×2 (06:44→09:06)
--- NOTE | 2018-03-05 07:44 | P.PN ---
Subjective Progress Note Date: 03/05/18 Principal diagnosis: Severe coronary artery disease This is a pleasant 62-year-old female patient who sees Dr. Mast in the office as an outpatient with a past medical history significant for coronary artery disease, hypertension, dyslipidemia, presented to the hospital complaining of blood in the stool. The patient was experiencing intermittent episodes of chest discomfort concerning for angina. She underwent a heart catheterization in October 2017 and that revealed totally occluded left main and right coronary artery with patent DE JESUS to left circumflex and patent SHELLY to LAD as well as patent saphenous vein graft to diagonal branch. The right coronary artery was unprotected. The patient just underwent stenting of the right coronary artery which was chronically occluded at [facility]. The procedure was performed on Tuesday. The patient was discharged home on dual antiplatelet therapy including Brilinta. Before that the patient was on Plavix. She was in her usual state of health until yesterday when she started experiencing intermittent episodes of blood in the stool. No abdominal discomfort. No nausea or vomiting. No fever or chills. No chest pain or chest discomfort. No shortness of breath. No dizziness or lightheadedness. No syncope. The patient did have about 7 episodes of blood in the stool. Initially she was presented to [facility] but she was transferred to [facility]. On follow-up with the patient today, 03/05/2018, she remains asymptomatic from a cardiovascular standpoint of view. She is hemodynamically stable as well. The hemoglobin this morning is 10.8. No work episode of GI bleeding since yesterday. She was restarted on Plavix yesterday with a bolus and maintenance dose. She is in process of being seen by the GI service. Meanwhile I would restart the patient back on metoprolol as well as on statin. Objective - Vital Signs Vital signs: Vital Signs Temp 98.4 F 03/05/18 00:00 Pulse 74 03/05/18 07:00 Resp 18 03/05/18 07:00 BP 123/52 03/05/18 07:00 Pulse Ox 95 03/05/18 07:00 Intake & Output 03/04/18 03/05/18 03/05/18 18:59 06:59 18:59 Output Total 0 700 Balance 0 -700 Weight 54.5 kg 54.4 kg Output: Urine 0 700 Other: Voiding Method Bedside Commode Bedside Commode # Voids 0 0 # Bowel Movements 0 0 - Constitutional General appearance: Present: no acute distress - Respiratory Respiratory: bilateral: CTA - Cardiovascular Rhythm: regular Heart sounds: normal: S1, S2 - Labs CBC & Chem 7: 03/05/18 04:52 03/05/18 04:52 Labs: Abnormal Lab Results - Last 24 Hours (Table) 03/04/18 03/04/18 03/05/18 Range/Units 09:26 12:54 04:52 RBC 3.71 L 3.69 L (3.80-5.40) m/uL Hgb 10.9 L (11.4-16.0) gm/dL Hct 33.5 L 32.9 L (34.0-46.0) % POC Glucose (mg/dL) 100 H (75-99) mg/dL Assessment and Plan Assessment: Assessment #1 gastrointestinal bleeding of unknown etiology at this point #2 CAD and status post RCA stenting #3 hypertension #4 dyslipidemia Plan #1 continue the current medical regimen with Plavix as well as baby aspirin #2 continue monitor the hemoglobin #3 blood transfusion for any hemoglobin below 7 or below 8 with symptoms #4 restart the patient on metoprolol as well as a statin #5 follow-up with the GI input. Thank you for allowing us participate in her care and we'll continue following up with the patient
--- NOTE | 2018-03-05 08:49 | P.PN ---
Subjective Progress Note Date: 03/05/18 Principal diagnosis: Acute lower gastrointestinal bleeding This is a very pleasant 62-year-old female patient who follows with Dr. Montesinos as her primary care physician. She has a history of hypertension, hyperlipidemia, gastroesophageal reflux disease. Chest has a significant history of coronary artery disease and is status post coronary artery bypass grafting in 2001. She had recently undergone cardiac catheterization in October 2017 and was found to have a totally occluded left main with no antegrade flow, chronically occluded right coronary artery with ipsilateral collaterals, patent DE JESUS to the circumflex and patent SHELLY to LAD, patent saphenous vein graft to diagonal branch. Normal left ventricular size and systolic function. An attempt to open the RCA was unsuccessful. She was subsequently referred to [facility] and on 01/02/2018 underwent a rotator procedure to open the coronary artery. On 03/01/18 she received 3 stent placements. Details of which are not available at this time. She had ongoing left arm discomfort and on 03/02/2018 she had another catheterization all stents were patent. She was initiated on aspirin and Mylanta. She was also given 1 dose of Plavix on 2017. She presented to [facility] last evening after having 6 bright red bowel movements at home. She had a seventh one earlier today. Based on the GI bleeding she was transferred here to the emergency room. Hemoglobin 11.9. She is seen today in consultation in the intensive care unit. She is currently awake and alert in no acute distress. She denies any chest pain, palpitations lightheadedness or dizziness. Her troponin is found to be 6.41. EKG shows a right bundle branch block pattern. She denies any shortness of breath, cough or congestion. She is maintaining O2 saturations in the mid 90s on room air. She's afebrile. Currently hemodynamically stable. She does have a history of diverticulosis. She had a colonoscopy 4 years ago that was reported as normal according to the patient. She has been typed and crossmatched. On 03/05/2018 patient seen in follow-up she is currently in the intensive care unit, she is stable, room air pulse ox is 95%, hemodynamically stable, non- tachycardic, she is in sinus rhythm with a controlled rate. Today's hemoglobin is 10.9. Patient has not had any further episodes of GI bleeding since yesterday. She was restarted on Plavix yesterday per cardiology. She was seen by GI service. No shortness of breath or chest pain. today's chest x-ray has been reviewed, and showed no acute process. Objective - Vital Signs Vital signs: Vital Signs Temp 98.4 F 03/05/18 00:00 Pulse 74 03/05/18 07:00 Resp 18 03/05/18 07:00 BP 123/52 03/05/18 07:00 Pulse Ox 95 03/05/18 07:00 Intake & Output 03/04/18 03/05/18 03/05/18 18:59 06:59 18:59 Output Total 0 700 Balance 0 -700 Weight 54.5 kg 54.4 kg Output: Urine 0 700 Other: Voiding Method Bedside Commode Bedside Commode # Voids 0 0 # Bowel Movements 0 0 - Exam - Constitutional General appearance: average body habitus, mild distress - EENT Eyes: EOMI, PERRLA ENT: hearing grossly normal Ears: bilateral: normal - Neck Neck: normal ROM Carotids: bilateral: upstroke normal Thyroid: bilateral: normal size - Respiratory Respiratory: bilateral: CTA - Cardiovascular Rhythm: regular Heart sounds: normal: S1, S2 - Gastrointestinal General gastrointestinal: hyperactive bowel sounds - Integumentary Integumentary: normal turgor - Neurologic Neurologic: CNII-XII intact - Musculoskeletal Musculoskeletal: generalized weakness - Psychiatric Psychiatric: A&O x's 3, appropriate affect, intact judgment & insight - Labs CBC & Chem 7: 03/05/18 04:52 03/05/18 04:52 Labs: Abnormal Lab Results - Last 24 Hours (Table) 03/04/18 03/04/18 03/05/18 Range/Units 09:26 12:54 04:52 RBC 3.71 L 3.69 L (3.80-5.40) m/uL Hgb 10.9 L (11.4-16.0) gm/dL Hct 33.5 L 32.9 L (34.0-46.0) % POC Glucose (mg/dL) 100 H (75-99) mg/dL Assessment and Plan Plan: #1 Acute lower gastrointestinal bleeding of unclear etiology. Suspect diverticuli is present does have a history of diverticulosis. Colonoscopy 4 years ago was reported as normal. #2 Coronary artery disease with 3 stents placed on 03/01/2018 and was initiated on aspirin and plan Reglan. Repeat catheterization on 03/02/2018 showed patent stents and one additional Plavix tablet was given that day. #3 Prior history of coronary artery disease with coronary artery bypass grafting in 2001. #4 Hyperlipidemia. #5 Hypertension. #6 History of gastroesophageal reflux disease. Plan: Current plan of treatment, no further bleeding, patient was restarted on her Plavix per cardiology, no specific complaints, hemodynamically stable. Hemoglobin is 10.9, GI service is following. We'll continue to follow I performed a history & physical examination of the patient and discussed their management with my nurse practitioner, Hailey Tim. I reviewed the nurse practitioner's note and agree with the documented findings and plan of care. Lung sounds are clear. The findings and the impression was discussed with the patient. I attest to the documentation by the nurse practitioner. Time with Patient: Less than 30
[2018-03-05] MEDS: ASPIRIN 81 MG PO SCH (09:07)
[2018-03-05] MEDS: CLOPIDOGREL 75 MG TAB PO SCH (09:07)
[2018-03-05] MEDS: METOPROLOL TARTRATE 12.5 MG TAB PO SCH ×2 (09:08→22:20)
[2018-03-05] MEDS: PANTOPRAZOLE 40 MG/10 ML VIAL IVP SCH ×2 (09:08→22:21)
--- NOTE | 2018-03-05 13:13 | P.HPIM ---
History of Present Illness H&P Date: 03/04/18 Chief Complaint: Bloody bowel movement 62-year-old female who is transferred to our facility from an outside hospital for further evaluation of high risk GI bleeding. The patient has a past medical history most significant for coronary artery disease, status post CABG and a recent cardiac catheterization with 3 stents placed in her RCA at [facility]. After the initial stent placement patient had persistent left arm pain and a repeat cardiac catheterization was performed. Patient was then prescribed Brilinta, he received her first dose on along with her very last dose of Plavix. The patient has continued taking Brilenta and 81mg ASA daily since that time. Patient was discharged from the hospital on March 03. Patient port that she was feeling well at that time. She notes that around 6 PM on Tuesday evening she had a bloody bowel movement. She described it as dark red blood with clots. She has no history of GI bleeding in the past. Patient's most recent colonoscopy was approximately 4 years ago, she was told that it was normal and she was to follow-up in 10 years. Patient does have a history of diverticulitis but has not been having any abdominal pain or discomfort recently. The patient denies any lightheadedness, chest pain, palpitations or shortness of breath. She does report some transient nausea prior to owing to the outside hospital. Patient reports that she's had 3-4 bloody bowel movements between 6 PM on Tuesday evening and 1 AM on Tuesday morning. Upon arrival to our emergency department she has not had a bloody bowel movement approximately 5 hours. She's not expressing abdominal pain or discomfort. Review of Systems Review of Systems Constitutional: Reports fatigue, Reports weakness Eyes: denies blurred vision, denies decreased vision Ears: deny: decreased hearing Ears, nose, mouth and throat: Denies headache, Denies sore throat Cardiovascular: Denies chest pain, Denies shortness of breath Respiratory: Denies cough Gastrointestinal: Reports abdominal pain, Reports hematochezia Genitourinary: Denies dysuria, Denies hematuria Musculoskeletal: Denies myalgias Integumentary: Denies pruritus, Denies rash Neurological: Denies numbness, Denies weakness Psychiatric: Reports anxiety Endocrine: Denies fatigue, Denies weight change Hematologic/Lymphatic: Reports easy bleeding Allergic/Immunologic: Reports as per HPI Past Medical History Past Medical History: Coronary Artery Disease (CAD), GERD/Reflux, Hyperlipidemia , Hypertension History of Any Multi-Drug Resistant Organisms: None Reported Past Surgical History: Coronary Bypass/CABG Additional Past Surgical History / Comment(s): triple by pass 2001, [address] Past Anesthesia/Blood Transfusion Reactions: No Reported Reaction Date of Last Stent Placement:: 03/01/18 Past Psychological History: Anxiety Smoking Status: Never smoker Past Alcohol Use History: Occasional Past Drug Use History: None Reported - Past Family History Mother Family Medical History: Cancer, Coronary Artery Disease (CAD) Additional Family Medical History / Comment(s): Cervical Father Family Medical History: COPD, Prostate Disorder Medications and Allergies Home Medications Medication Instructions Recorded Confirmed Type Atorvastatin [Lipitor] 40 mg PO HS 10/21/17 03/04/18 History Glucosamine Sulfate 500 mg PO DAILY 10/21/17 03/04/18 History Lisinopril [Zestril] 5 mg PO HS 10/21/17 03/04/18 History Metoprolol Tartrate [Lopressor] 50 mg PO BID 10/21/17 03/04/18 History Nitroglycerin Sl Tabs [Nitrostat] 0.4 mg PO Q5M PRN 10/21/17 03/04/18 History Ranitidine HCl [Zantac] 150 mg PO BID 10/21/17 03/04/18 History Aspirin EC [Ecotrin Low Dose] 81 mg PO DAILY 03/04/18 03/04/18 History Ticagrelor [Brilinta] 90 mg PO BID 03/04/18 03/04/18 History Allergies Allergy/AdvReac Type Severity Reaction Status Date / Time latex Allergy Rash/Hives Verified 03/04/18 11:44 Physical Exam Vitals: Vital Signs Temp Pulse Resp BP Pulse Ox 03/04/18 14:00 87 19 143/68 94 L 03/04/18 13:30 80 22 148/65 93 L 03/04/18 13:00 85 12 144/74 96 03/04/18 12:30 84 21 139/54 96 03/04/18 12:00 98.7 F 82 17 144/66 95 03/04/18 11:30 77 12 124/69 95 03/04/18 11:00 86 14 134/72 96 03/04/18 10:30 80 15 130/68 96 10/20/18 10:00 78 17 136/74 95 03/04/18 09:50 98.7 F 76 15 95 03/04/18 09:40 86 16 94 L 03/04/18 09:30 85 14 133/74 95 03/04/18 09:20 80 12 95 03/04/18 08:14 99.1 F 81 18 146/89 95 03/04/18 06:58 89 16 155/72 97 03/04/18 06:40 78 16 97 03/04/18 05:40 83 11 L 158/75 97 03/04/18 05:20 73 16 138/76 97 03/04/18 05:06 99 F 85 16 138/76 96 Intake and Output 03/03/18 03/04/18 03/04/18 22:59 06:59 14:59 Output Total 0 Balance 0 Output: Urine 0 Other: Voiding Method Bedside Commode # Voids 0 # Bowel Movements 0 Weight 77.111 kg 54.5 kg - Constitutional General appearance: Present: average body habitus, cooperative, no acute distress - EENT Eyes: Present: anicteric sclerae, EOMI, PERRLA, normal appearance ENT: Present: hearing grossly normal, normal oropharynx Ears: bilateral: normal - Neck Neck: Present: normal ROM. Absent: lymphadenopathy, rigidity, thyromegaly Carotids: negative: bruit present Thyroid: bilateral: normal size, negative: enlarged, nodule - Respiratory Respiratory: bilateral: CTA, negative: rales, rhonchi, wheezing - Cardiovascular Rhythm: regular Heart sounds: normal: S1, S2 Abnormal Heart Sounds: Absent: systolic murmur, diastolic murmur - Gastrointestinal General gastrointestinal: Present: normal bowel sounds, soft. Absent: distended , organomegaly, tenderness - Genitourinary Genitourinary Comment(s): deferred - Integumentary Integumentary: Present: normal turgor. Absent: jaundiced, rash, ulcer - Neurologic Neurologic: Present: CNII-XII intact. Absent: focal deficits - Musculoskeletal Musculoskeletal: Present: gait normal, strength equal bilaterally - Psychiatric Psychiatric: Present: A&O x's 3, appropriate affect, intact judgment & insight Results CBC & Chem 7: 03/05/18 04:52 03/05/18 04:52 Labs: Abnormal Lab Results - Last 24 Hours (Table) 03/04/18 03/04/18 03/04/18 Range/Units 05:54 05:54 05:54 RBC (3.80-5.40) m/uL Hct (34.0-46.0) % Neutrophils # 8.5 H (1.3-7.7) k/uL APTT 20.5 L (22.0-30.0) sec Chloride 108 H (98-107) mmol/L BUN 18 H (7-17) mg/dL Glucose 106 H (74-99) mg/dL POC Glucose (mg/dL) (75-99) mg/dL AST 52 H (14-36) U/L Troponin I (0.000-0.034) ng/mL Total Protein 5.5 L (6.3-8.2) g/dL Albumin 3.1 L (3.5-5.0) g/dL 03/04/18 03/04/18 03/04/18 Range/Units 05:54 09:26 12:54 RBC 3.71 L (3.80-5.40) m/uL Hct 33.5 L (34.0-46.0) % Neutrophils # (1.3-7.7) k/uL APTT (22.0-30.0) sec Chloride (98-107) mmol/L BUN (7-17) mg/dL Glucose (74-99) mg/dL POC Glucose (mg/dL) 100 H (75-99) mg/dL AST (14-36) U/L Troponin I 6.410 H* (0.000-0.034) ng/mL Total Protein (6.3-8.2) g/dL Albumin (3.5-5.0) g/dL Assessment and Plan Assessment: #1 Acute lower gastrointestinal bleeding of unclear etiology. Suspect diverticuli is present does have a history of diverticulosis. Colonoscopy 4 years ago was reported as normal. #2 Coronary artery disease with 3 stents placed on 03/01/2018 and was initiated on aspirin and plan Reglan. Repeat catheterization on 03/02/2018 showed patent stents and one additional Plavix tablet was given that day. #3 Prior history of coronary artery disease with coronary artery bypass grafting in 2001. #4 Hyperlipidemia. #5 Hypertension. #6 History of gastroesophageal reflux disease. PLAN: The patient was seen and evaluated in ICU by Dr. Parra. He did have concerns regarding possible transfer back to [facility] due to the patient's predicament of 3 fresh stent placements and now gastrointestinal bleeding. Cardiology has been consulted and will make that determination. In the interim we'll continue with her current treatment plan. We will get her started on IV Protonix 40 mg IV twice a day. We'll continue to monitor her hemoglobins. Continue to observe for GI bleed. Continue to monitor her here closely in the intensive care unit. We'll continue to follow. Time with Patient: Greater than 30
[2018-03-05] MEDS: ATORVASTATIN 40 MG TAB PO SCH (22:20)
[2018-03-06 05:53] LABS: Basophils % (A) 0 %; Eosinophils # (A) 0.2 k/uL (0-0.7); Eosinophils % (A) 3 %; HCT 32.2 % (34.0-46.0); HGB 10.7 gm/dL (11.4-16.0); Lymphocytes # (A) 1.2 k/uL (1.0-4.8); Lymphocytes % (A) 19 %; MCH 29.6 pg (25.0-35.0); MCHC 33.3 g/dL (31.0-37.0); MCV 88.9 fL (80.0-100.0); Mean Platelet Volume 6.7; Monocytes # (A) 0.3 k/uL (0-1.0); Monocytes % (A) 5 %; Neutrophils # (A) 4.8 k/uL (1.3-7.7); Neutrophils % (A) 72 %; Platelet Count 237 k/uL (150-450); RBC 3.62 m/uL (3.80-5.40); RDW 13.7 % (11.5-15.5); WBC 6.6 k/uL (3.8-10.6)
[2018-03-06 06:17] LABS: Anion Gap 5 mmol/L; Blood Urea Nitrogen 11 mg/dL (7-17); Calcium 8.8 mg/dL (8.4-10.2); Carbon Dioxide 27 mmol/L (22-30); Chloride 106 mmol/L (98-107); Glucose 93 mg/dL (74-99); Magnesium 2.1 mg/dL (1.6-2.3); Phosphorus 4.5 mg/dL (2.5-4.5); Potassium 4.1 mmol/L (3.5-5.1); Sodium 138 mmol/L (137-145)
[2018-03-06] MEDS: SODIUM CHLORIDE 0.9% 500 ML 500 ML IV SCH (06:53)
--- NOTE | 2018-03-06 07:20 | P.PN ---
Subjective Progress Note Date: 03/06/18 Principal diagnosis: Severe coronary artery disease This is a pleasant 62-year-old female patient who sees Dr. Mast in the office as an outpatient with a past medical history significant for coronary artery disease, hypertension, dyslipidemia, presented to the hospital complaining of blood in the stool. The patient was experiencing intermittent episodes of chest discomfort concerning for angina. She underwent a heart catheterization in October 2017 and that revealed totally occluded left main and right coronary artery with patent DE JESUS to left circumflex and patent SHELLY to LAD as well as patent saphenous vein graft to diagonal branch. The right coronary artery was unprotected. The patient just underwent stenting of the right coronary artery which was chronically occluded at [facility]. The procedure was performed on Tuesday. The patient was discharged home on dual antiplatelet therapy including Brilinta. Before that the patient was on Plavix. She was in her usual state of health until yesterday when she started experiencing intermittent episodes of blood in the stool. No abdominal discomfort. No nausea or vomiting. No fever or chills. No chest pain or chest discomfort. No shortness of breath. No dizziness or lightheadedness. No syncope. The patient did have about 7 episodes of blood in the stool. Initially she was presented to [facility] but she was transferred to [facility]. On follow-up with the patient today, 03/06/2018, she remains asymptomatic from a cardiovascular standpoint of view. She is hemodynamically stable as well. The hemoglobin this morning is 10.7. She did not have any bowel movement for the last 48 hours and we are waiting to see if she is still have any bleeding. The GI service seen the patient and the plan is not to proceed with any upper or lower endoscopy at this point if she is not having any more bleeding. Meanwhile the patient is on dual antiplatelet therapy with aspirin and Plavix. She seems to be tolerating that very well. We'll continue following up with her. Possible discharge in the next 24 hours. Yesterday I did start the patient on beta monique with metoprolol as well as lisinopril and she seems to be tolerating that very well. Objective - Vital Signs Vital signs: Vital Signs Temp 98.2 F 03/06/18 04:00 Pulse 73 03/06/18 07:00 Resp 16 03/06/18 07:00 BP 119/58 03/06/18 07:00 Pulse Ox 92 L 03/06/18 07:00 Intake & Output 03/05/18 03/06/18 03/06/18 18:59 06:59 18:59 Intake Total 1050 0 Output Total 1000 800 0 Balance 50 -800 0 Intake: Intake, IV Titration 200 Amount Magnesium Sulfate-D5w Pmx 200 1 gm In Dextrose/Water 1 100ml.bag @ 100 mls/hr IVPB Q1H [facility] Rx#: [id number] Oral 850 0 Output: Urine 1000 800 0 Other: Voiding Method Bedside Commode Bedside Commode # Voids 0 0 # Bowel Movements 0 - Constitutional General appearance: Present: no acute distress - Respiratory Respiratory: bilateral: CTA - Cardiovascular Rhythm: regular Heart sounds: normal: S1, S2 - Labs CBC & Chem 7: 03/06/18 04:47 03/06/18 04:47 Labs: Abnormal Lab Results - Last 24 Hours (Table) 03/06/18 Range/Units 04:47 RBC 3.62 L (3.80-5.40) m/uL Hgb 10.7 L (11.4-16.0) gm/dL Hct 32.2 L (34.0-46.0) % Assessment and Plan Assessment: Assessment #1 gastrointestinal bleeding of unknown etiology at this point #2 CAD and status post RCA stenting #3 hypertension #4 dyslipidemia Plan #1 continue the current medical regimen with Plavix as well as baby aspirin #2 continue monitor the hemoglobin #3 blood transfusion for any hemoglobin below 7 or below 8 with symptoms #4 follow-up with the patient Thank you for allowing us participate in her care and we'll continue following up with the patient
[2018-03-06] MEDS: METOPROLOL TARTRATE 12.5 MG TAB PO SCH ×2 (08:06→20:47)
[2018-03-06] MEDS: PANTOPRAZOLE 40 MG/10 ML VIAL IVP SCH ×2 (08:06→20:48)
[2018-03-06] MEDS: ASPIRIN 81 MG PO SCH (08:06)
[2018-03-06] MEDS: CLOPIDOGREL 75 MG TAB PO SCH (08:07)
--- NOTE | 2018-03-06 11:03 | P.PN ---
Subjective Progress Note Date: 03/06/18 Principal diagnosis: Acute lower gastrointestinal bleeding This is a very pleasant 62-year-old female patient who follows with Dr. Montesinos as her primary care physician. She has a history of hypertension, hyperlipidemia, gastroesophageal reflux disease. Chest has a significant history of coronary artery disease and is status post coronary artery bypass grafting in 2001. She had recently undergone cardiac catheterization in October 2017 and was found to have a totally occluded left main with no antegrade flow, chronically occluded right coronary artery with ipsilateral collaterals, patent DE JESUS to the circumflex and patent SHELLY to LAD, patent saphenous vein graft to diagonal branch. Normal left ventricular size and systolic function. An attempt to open the RCA was unsuccessful. She was subsequently referred to [facility] and on 01/02/2018 underwent a rotator procedure to open the coronary artery. On 03/01/18 she received 3 stent placements. Details of which are not available at this time. She had ongoing left arm discomfort and on 03/02/2018 she had another catheterization all stents were patent. She was initiated on aspirin and Mylanta. She was also given 1 dose of Plavix on 2017. She presented to [facility] last evening after having 6 bright red bowel movements at home. She had a seventh one earlier today. Based on the GI bleeding she was transferred here to the emergency room. Hemoglobin 11.9. She is seen today in consultation in the intensive care unit. She is currently awake and alert in no acute distress. She denies any chest pain, palpitations lightheadedness or dizziness. Her troponin is found to be 6.41. EKG shows a right bundle branch block pattern. She denies any shortness of breath, cough or congestion. She is maintaining O2 saturations in the mid 90s on room air. She's afebrile. Currently hemodynamically stable. She does have a history of diverticulosis. She had a colonoscopy 4 years ago that was reported as normal according to the patient. She has been typed and crossmatched. On 03/05/2018 patient seen in follow-up she is currently in the intensive care unit, she is stable, room air pulse ox is 95%, hemodynamically stable, non- tachycardic, she is in sinus rhythm with a controlled rate. Today's hemoglobin is 10.9. Patient has not had any further episodes of GI bleeding since yesterday. She was restarted on Plavix yesterday per cardiology. She was seen by GI service. No shortness of breath or chest pain. today's chest x-ray has been reviewed, and showed no acute process. On 03/06/2018 patient seen in follow-up in the intensive care unit. She is awake alert, oriented 3, in no acute distress, denies any chest pain or shortness of breath. Room air pulse ox is 95%, afebrile. She has had no recurrence of GI bleeding since the initiation of Plavix, current dose of aspirin is 81 mg. Today's labs have been reviewed, the PVC 6.6, hemoglobin is 10.7, Pravachol was 237, electrolytes and renal profile are normal. No new chest x-rays. Increase activity as tolerated. No acute events overnight. Patient can be transferred out of the intensive care unit to selective care unit. Objective - Vital Signs Vital signs: Vital Signs Temp 98.2 F 03/06/18 08:00 Pulse 80 03/06/18 10:00 Resp 13 03/06/18 10:00 BP 132/51 03/06/18 10:00 Pulse Ox 95 03/06/18 10:00 Intake & Output 03/05/18 03/06/18 03/06/18 18:59 06:59 18:59 Intake Total 1050 0 510 Output Total 1000 800 700 Balance 50 -800 -190 Weight 80.5 kg Intake: IV 30 .9 30 Intake, IV Titration 200 Amount Magnesium Sulfate-D5w Pmx 200 1 gm In Dextrose/Water 1 100ml.bag @ 100 mls/hr IVPB Q1H [facility] Rx#: [id number] Oral 850 0 480 Output: Urine 1000 800 700 Other: Voiding Method Bedside Commode Bedside Commode Bedside Commode # Voids 0 0 # Bowel Movements 0 - Exam - Constitutional General appearance: average body habitus, in no acute distress - EENT Eyes: EOMI, PERRLA ENT: hearing grossly normal Ears: bilateral: normal - Neck Neck: normal ROM Carotids: bilateral: upstroke normal Thyroid: bilateral: normal size - Respiratory Respiratory: bilateral: CTA - Cardiovascular Rhythm: regular Heart sounds: normal: S1, S2 - Gastrointestinal General gastrointestinal: hyperactive bowel sounds - Integumentary Integumentary: normal turgor - Neurologic Neurologic: CNII-XII intact - Musculoskeletal Musculoskeletal: generalized weakness - Psychiatric Psychiatric: A&O x's 3, appropriate affect, intact judgment & insight - Labs CBC & Chem 7: 03/06/18 04:47 03/06/18 04:47 Labs: Abnormal Lab Results - Last 24 Hours (Table) 03/06/18 Range/Units 04:47 RBC 3.62 L (3.80-5.40) m/uL Hgb 10.7 L (11.4-16.0) gm/dL Hct 32.2 L (34.0-46.0) % Assessment and Plan Plan: #1 Acute lower gastrointestinal bleeding of unclear etiology. Suspect diverticuli is present does have a history of diverticulosis. Colonoscopy 4 years ago was reported as normal. #2 Coronary artery disease with 3 stents placed on 03/01/2018 and was initiated on aspirin and plan Reglan. Repeat catheterization on 03/02/2018 showed patent stents and one additional Plavix tablet was given that day. #3 Prior history of coronary artery disease with coronary artery bypass grafting in 2001. #4 Hyperlipidemia. #5 Hypertension. #6 History of gastroesophageal reflux disease. Plan: Patient is hemodynamically stable, there has been no recurrence of GI bleeding since the initiation of Plavix, patient remains on aspirin 81 mg daily per cardiology, no plans of chest pain or shortness of breath. Vital signs are stable. Increase activity as tolerated. Patient can go out of the intensive care unit to selective care unit today. I performed a history & physical examination of the patient and discussed their management with my nurse practitioner, Hailey Tim. I reviewed the nurse practitioner's note and agree with the documented findings and plan of care. Lung sounds are clear. The findings and the impression was discussed with the patient. I attest to the documentation by the nurse practitioner. Time with Patient: Less than 30
--- NOTE | 2018-03-06 12:29 | P.PN ---
Subjective Progress Note Date: 03/05/18 Principal diagnosis: Acute lower GI bleed This is a very pleasant 62-year-old female patient who follows with Dr. Montesinos as her primary care physician. She has a history of hypertension, hyperlipidemia, gastroesophageal reflux disease; significant history of coronary artery disease and is status post coronary artery bypass grafting in 2001. She had recently undergone cardiac catheterization in October 2017 and was found to have a totally occluded left main with no antegrade flow, chronically occluded right coronary artery with ipsilateral collaterals, patent DE JESUS to the circumflex and patent SHELLY to LAD, patent saphenous vein graft to diagonal branch. Normal left ventricular size and systolic function. An attempt to open the RCA was unsuccessful. She was subsequently referred to [facility] and on 01/02/2018 underwent a rotator procedure to open the coronary artery. On 03/01/18 she received 3 stent placements. Details of which are not available at this time. She had ongoing left arm discomfort and on 03/02/2018 she had another catheterization all stents were patent. She was initiated on aspirin and Mylanta. She was also given 1 dose of Plavix on 03/02/2018. She presented to [facility] after having 6 bright red bowel movements at home. She had a seventh one earlier yesterday. Based on the GI bleeding she was transferred here to the emergency room. Hemoglobin 11.9. She is seen today in consultation in the intensive care unit. 03/05/2018 She is currently awake and alert in no acute distress. She denies any chest pain, palpitations lightheadedness or dizziness. Her troponin is found to be 6.41. EKG shows a right bundle branch block pattern. She denies any shortness of breath, cough or congestion. She is maintaining O2 saturations in the mid 90s on room air. She's afebrile. Currently hemodynamically stable. She does have a history of diverticulosis. She had a colonoscopy 4 years ago that was reported as normal according to the patient. She has been typed and crossmatched. Today's hemoglobin is 10.9. Patient has not had any further episodes of GI bleeding since yesterday. She was restarted on Plavix yesterday per cardiology. She was seen by GI service. Objective - Vital Signs Vital signs: Vital Signs Temp 98.2 F 03/05/18 08:00 Pulse 67 03/05/18 11:00 Resp 11 L 03/05/18 11:00 BP 112/55 03/05/18 11:00 Pulse Ox 95 03/05/18 11:00 Intake & Output 03/04/18 03/05/18 03/05/18 18:59 06:59 18:59 Intake Total 200 Output Total 0 700 650 Balance 0 -700 -450 Weight 54.5 kg 54.4 kg Intake: Intake, IV Titration 200 Amount Magnesium Sulfate-D5w Pmx 200 1 gm In Dextrose/Water 1 100ml.bag @ 100 mls/hr IVPB Q1H [facility] Rx#: [id number] Output: Urine 0 700 650 Other: Voiding Method Bedside Commode Bedside Commode Bedside Commode # Voids 0 0 # Bowel Movements 0 0 0 - Exam - Constitutional General appearance: Present: average body habitus, cooperative, no acute distress - EENT Eyes: Present: anicteric sclerae, EOMI, PERRLA, normal appearance ENT: Present: hearing grossly normal, normal oropharynx Ears: bilateral: normal - Neck Neck: Present: normal ROM. Absent: lymphadenopathy, rigidity, thyromegaly Carotids: negative: bruit present Thyroid: bilateral: normal size, negative: enlarged, nodule - Respiratory Respiratory: bilateral: CTA, negative: rales, rhonchi, wheezing - Cardiovascular Rhythm: regular Heart sounds: normal: S1, S2 Abnormal Heart Sounds: Absent: systolic murmur, diastolic murmur - Gastrointestinal General gastrointestinal: Present: normal bowel sounds, soft. Absent: distended , organomegaly, tenderness - Genitourinary Genitourinary Comment(s): deferred - Integumentary Integumentary: Present: normal turgor. Absent: jaundiced, rash, ulcer - Neurologic Neurologic: Present: CNII-XII intact. Absent: focal deficits - Musculoskeletal Musculoskeletal: Present: gait normal, strength equal bilaterally - Psychiatric Psychiatric: Present: A&O x's 3, appropriate affect, intact judgment & insight - Labs CBC & Chem 7: 03/06/18 04:47 03/06/18 04:47 Labs: Abnormal Lab Results - Last 24 Hours (Table) 03/04/18 03/05/18 Range/Units 12:54 04:52 RBC 3.71 L 3.69 L (3.80-5.40) m/uL Hgb 10.9 L (11.4-16.0) gm/dL Hct 33.5 L 32.9 L (34.0-46.0) % Assessment and Plan Assessment: #1 Acute lower gastrointestinal bleeding of unclear etiology. - Suspect diverticuli is present does have a history of diverticulosis. Colonoscopy 4 years ago was reported as normal. - Plavix was held upon admission secondary to GI bleed; restarted by cardiology service; GI is agreeable - Continue with Protonix 40 mg IV every 12 hours - Continue to monitor H&H closely and transfuse if needed #2 Coronary artery disease with 3 stents placed on 03/01/2018 and was initiated on aspirin and Plavix. Repeat catheterization on 03/02/2018 showed patent stents and one additional Plavix tablet was given that day. #3 Prior history of coronary artery disease with coronary artery bypass grafting in 2001; - continue with aspirin, Plavix, statins and beta blockers #4 Hyperlipidemia. - Continue with home dose of Lipitor 40 mg daily at bedtime #5 Hypertension; - remains stable on metoprolol 12.5 mg twice a day - Continue to monitor blood pressure closely and make adjustments if needed #6 History of gastroesophageal reflux disease; remains on Protonix PLAN: Continue to monitor her here closely in the intensive care unit. We'll continue to follow. Time with Patient: Greater than 30
--- NOTE | 2018-03-06 12:33 | P.PN ---
Subjective Progress Note Date: 03/06/18 Principal diagnosis: Acute lower GI bleed This is a very pleasant 62-year-old female patient who follows with Dr. Montesinos as her primary care physician. She has a history of hypertension, hyperlipidemia, gastroesophageal reflux disease; significant history of coronary artery disease and is status post coronary artery bypass grafting in 2001. She had recently undergone cardiac catheterization in October 2017 and was found to have a totally occluded left main with no antegrade flow, chronically occluded right coronary artery with ipsilateral collaterals, patent DE JESUS to the circumflex and patent SHELLY to LAD, patent saphenous vein graft to diagonal branch. Normal left ventricular size and systolic function. An attempt to open the RCA was unsuccessful. She was subsequently referred to [facility] and on 01/02/2018 underwent a rotator procedure to open the coronary artery. On 03/01/18 she received 3 stent placements. Details of which are not available at this time. She had ongoing left arm discomfort and on 03/02/2018 she had another catheterization all stents were patent. She was initiated on aspirin and Mylanta. She was also given 1 dose of Plavix on 03/02/2018. She presented to [facility] after having 6 bright red bowel movements at home. She had a seventh one earlier yesterday. Based on the GI bleeding she was transferred here to the emergency room. Hemoglobin 11.9. She is seen today in consultation in the intensive care unit. 03/05/2018 She is currently awake and alert in no acute distress. She denies any chest pain, palpitations lightheadedness or dizziness. Her troponin is found to be 6.41. EKG shows a right bundle branch block pattern. She denies any shortness of breath, cough or congestion. She is maintaining O2 saturations in the mid 90s on room air. She's afebrile. Currently hemodynamically stable. She does have a history of diverticulosis. She had a colonoscopy 4 years ago that was reported as normal according to the patient. She has been typed and crossmatched. Today's hemoglobin is 10.9. Patient has not had any further episodes of GI bleeding since yesterday. She was restarted on Plavix yesterday per cardiology. She was seen by GI service. 03/06/2018 patient seen in follow-up in the intensive care unit. She is awake alert, oriented 3, in no acute distress, denies any chest pain or shortness of breath. Room air pulse ox is 95%, afebrile. She has had no recurrence of GI bleeding since the initiation of Plavix, current dose of aspirin is 81 mg. Today's labs have been reviewed, the WBC 6.6, hemoglobin is 10.7, Platelet s are 237, electrolytes and renal profile are normal. No new chest x-rays. Increase activity as tolerated. No acute events overnight. Patient can be transferred out of the intensive care unit to selective care unit. Objective - Vital Signs Vital signs: Vital Signs Temp 98.2 F 03/06/18 08:00 Pulse 73 03/06/18 11:00 Resp 13 03/06/18 11:00 BP 135/59 03/06/18 11:00 Pulse Ox 95 03/06/18 11:00 Intake & Output 03/05/18 03/06/18 03/06/18 18:59 06:59 18:59 Intake Total 1050 0 520 Output Total 1000 800 700 Balance 50 -800 -180 Weight 80.5 kg Intake: IV 40 .9 40 Intake, IV Titration 200 Amount Magnesium Sulfate-D5w Pmx 200 1 gm In Dextrose/Water 1 100ml.bag @ 100 mls/hr IVPB Q1H PIETER Rx#: [id number] Oral 850 0 480 Output: Urine 1000 800 700 Other: Voiding Method Bedside Commode Bedside Commode Bedside Commode # Voids 0 0 # Bowel Movements 0 - Exam - Constitutional General appearance: Present: average body habitus, cooperative, no acute distress - EENT Eyes: Present: anicteric sclerae, EOMI, PERRLA, normal appearance ENT: Present: hearing grossly normal, normal oropharynx Ears: bilateral: normal - Neck Neck: Present: normal ROM. Absent: lymphadenopathy, rigidity, thyromegaly Carotids: negative: bruit present Thyroid: bilateral: normal size, negative: enlarged, nodule - Respiratory Respiratory: bilateral: CTA, negative: rales, rhonchi, wheezing - Cardiovascular Rhythm: regular Heart sounds: normal: S1, S2 Abnormal Heart Sounds: Absent: systolic murmur, diastolic murmur - Gastrointestinal General gastrointestinal: Present: normal bowel sounds, soft. Absent: distended , organomegaly, tenderness - Genitourinary Genitourinary Comment(s): deferred - Integumentary Integumentary: Present: normal turgor. Absent: jaundiced, rash, ulcer - Neurologic Neurologic: Present: CNII-XII intact. Absent: focal deficits - Musculoskeletal Musculoskeletal: Present: gait normal, strength equal bilaterally - Psychiatric Psychiatric: Present: A&O x's 3, appropriate affect, intact judgment & insight - Labs CBC & Chem 7: 03/06/18 04:47 03/06/18 04:47 Labs: Abnormal Lab Results - Last 24 Hours (Table) 03/06/18 Range/Units 04:47 RBC 3.62 L (3.80-5.40) m/uL Hgb 10.7 L (11.4-16.0) gm/dL Hct 32.2 L (34.0-46.0) % Assessment and Plan Assessment: #1 Acute lower gastrointestinal bleeding of unclear etiology. - Suspect diverticuli is present does have a history of diverticulosis. Colonoscopy 4 years ago was reported as normal. - Plavix was held upon admission secondary to GI bleed; restarted by cardiology service; GI is agreeable - Continue with Protonix 40 mg IV every 12 hours - Continue to monitor H&H closely and transfuse if needed #2 Coronary artery disease with 3 stents placed on 03/01/2018 and was initiated on aspirin and Plavix. Repeat catheterization on 03/02/2018 showed patent stents and one additional Plavix tablet was given that day. #3 Prior history of coronary artery disease with coronary artery bypass grafting in 2001; - continue with aspirin, Plavix, statins and beta blockers #4 Hyperlipidemia. - Continue with home dose of Lipitor 40 mg daily at bedtime #5 Hypertension; - remains stable on metoprolol 12.5 mg twice a day - Continue to monitor blood pressure closely and make adjustments if needed #6 History of gastroesophageal reflux disease; remains on Protonix PLAN: Patient can be transferred to selective care unit by the junior art director recommendation. We'll continue to follow. Time with Patient: Greater than 30
[2018-03-06] MEDS: ATORVASTATIN 40 MG TAB PO SCH (20:47)
--- NOTE | 2018-03-07 00:40 | P.PN ---
Subjective Progress Note Date: 03/06/18 Principal diagnosis: Hematochezia, anemia of acute blood loss No further rectal bleeding since the patient has been here at the hospital. No abdominal pain. The patient has tolerated her diet. Objective - Vital Signs Vital signs: Vital Signs Temp 98.1 F 03/06/18 16:00 Pulse 71 03/06/18 23:00 Resp 22 03/06/18 23:00 BP 122/53 03/06/18 23:00 Pulse Ox 92 L 03/06/18 23:00 Intake & Output 03/06/18 03/06/18 03/07/18 06:59 18:59 06:59 Intake Total 0 1310 10 Output Total 800 700 Balance -800 610 10 Weight 80.5 kg Intake: IV 110 10 .9 110 10 Oral 0 1200 Output: Urine 800 700 Other: Voiding Method Bedside Commode Bedside Commode Bedside Commode # Voids 0 0 1 # Bowel Movements 0 - Exam On physical examination, patient appears comfortable in no apparent distress. HEAD: Normocephalic, atraumatic. EYES: No scleral icterus. No conjunctival injection. MOUTH: No lesions, tongue midline. NECK: Trachea midline, no gross abnormalities. CHEST: Clear to auscultation with no wheezing or rhonchi appreciated. HEART: Regular rate and rhythm. ABDOMEN: Soft, obese. Bowel sounds are positive. No organomegaly. No guarding or rigidity. EXTREMITIES: No pedal edema. SKIN: No rashes, no jaundice. NEUROLOGIC: Alert and oriented x3. No focal deficits. - Labs CBC & Chem 7: 03/06/18 04:47 03/06/18 04:47 Labs: Abnormal Lab Results - Last 24 Hours (Table) 03/06/18 Range/Units 04:47 RBC 3.62 L (3.80-5.40) m/uL Hgb 10.7 L (11.4-16.0) gm/dL Hct 32.2 L (34.0-46.0) % Assessment and Plan (1) Anemia, blood loss Narrative/Plan: Anemia of acute blood loss secondary to gastrointestinal bleeding with the patient presenting with essentially painless bright red blood per rectum. Hemoglobin 10.9 today. Current Visit: Yes Status: Acute Code(s): D50.0 - IRON DEFICIENCY ANEMIA SECONDARY TO BLOOD LOSS (CHRONIC) SNOMED Code(s): 253711604 (2) Lower GI bleed Narrative/Plan: Painless bright red blood per rectum likely representing diverticular bleed or hemorrhoidal bleeding. Also on the differential bleeding from AVM, less likely malignancy, or other etiology. Bleeding has appeared to slow down at this time. Patient is back on anticoagulation for recent cardiac catheterization with stent placement. No further bleeding since admission. Current Visit: Yes Status: Acute Code(s): K92.2 - GASTROINTESTINAL HEMORRHAGE, UNSPECIFIED SNOMED Code(s): 07988763 Plan: Supportive care Okay for diet, advance today Okay to restart antiplatelet and anticoagulation at this time given recent stent placement Continue to monitor hemoglobin and hematocrit and transfuse as needed Extensive discussion with the patient and her who is bedside about need for endoscopic intervention, this time we will follow the patient closely and monitor her hemoglobin and symptoms and if further bleeding occurs we'll discuss the need for endoscopic evaluation Patient reports preference of waiting until anticoagulation can be held to perform endoscopy Thank you for allowing us to participate in the care of this patient, we will continue to follow
[2018-03-07 05:30] LABS: Basophils % (A) 0 %; Eosinophils # (A) 0.2 k/uL (0-0.7); Eosinophils % (A) 3 %; HCT 33.7 % (34.0-46.0); HGB 10.7 gm/dL (11.4-16.0); Lymphocytes # (A) 1.2 k/uL (1.0-4.8); Lymphocytes % (A) 18 %; MCH 28.4 pg (25.0-35.0); MCHC 31.7 g/dL (31.0-37.0); MCV 89.4 fL (80.0-100.0); Mean Platelet Volume 6.7; Monocytes # (A) 0.3 k/uL (0-1.0); Monocytes % (A) 5 %; Neutrophils # (A) 4.7 k/uL (1.3-7.7); Neutrophils % (A) 72 %; Platelet Count 265 k/uL (150-450); RBC 3.77 m/uL (3.80-5.40); RDW 13.7 % (11.5-15.5); WBC 6.5 k/uL (3.8-10.6)
[2018-03-07 05:41] LABS: Anion Gap 5 mmol/L; Blood Urea Nitrogen 13 mg/dL (7-17); Calcium 9.2 mg/dL (8.4-10.2); Carbon Dioxide 26 mmol/L (22-30); Chloride 108 mmol/L (98-107); Glucose 100 mg/dL (74-99); Potassium 4.2 mmol/L (3.5-5.1); Sodium 139 mmol/L (137-145)
[2018-03-07] MEDS: SODIUM CHLORIDE 0.9% 500 ML 500 ML IV SCH (07:11)
--- NOTE | 2018-03-07 07:17 | P.PN ---
Subjective Progress Note Date: 03/07/18 Principal diagnosis: Severe coronary artery disease This is a pleasant 62-year-old female patient who sees Dr. Mast in the office as an outpatient with a past medical history significant for coronary artery disease, hypertension, dyslipidemia, presented to the hospital complaining of blood in the stool. The patient was experiencing intermittent episodes of chest discomfort concerning for angina. She underwent a heart catheterization in October 2017 and that revealed totally occluded left main and right coronary artery with patent DE JESUS to left circumflex and patent SHELLY to LAD as well as patent saphenous vein graft to diagonal branch. The right coronary artery was unprotected. The patient just underwent stenting of the right coronary artery which was chronically occluded at [facility]. The procedure was performed on Tuesday. The patient was discharged home on dual antiplatelet therapy including Brilinta. Before that the patient was on Plavix. She was in her usual state of health until yesterday when she started experiencing intermittent episodes of blood in the stool. No abdominal discomfort. No nausea or vomiting. No fever or chills. No chest pain or chest discomfort. No shortness of breath. No dizziness or lightheadedness. No syncope. The patient did have about 7 episodes of blood in the stool. Initially she was presented to [facility] but she was transferred to [facility]. On follow-up with the patient today, March 072017, she remains asymptomatic from a cardiac vascular standpoint overview. She remains in normal sinus mechanism. The vitals are stable. She continues to be on dual antiplatelet therapy. She did have a bowel movement this morning and it did not show any blood. From the cardiovascular standpoint of view, the patient might be able to be discharged home. Objective - Vital Signs Vital signs: Vital Signs Temp 98.4 F 03/07/18 04:00 Pulse 67 03/07/18 07:00 Resp 18 03/07/18 07:00 BP 126/53 03/07/18 07:00 Pulse Ox 94 L 03/07/18 07:00 Intake & Output 03/06/18 03/07/18 03/07/18 18:59 06:59 18:59 Intake Total 1310 80 Output Total 700 Balance 610 80 Weight 80.4 kg Intake: IV 110 80 .9 110 80 Oral 1200 Output: Urine 700 Other: Voiding Method Bedside Commode Bedside Commode # Voids 0 1 # Bowel Movements 0 - Constitutional General appearance: Present: no acute distress - Respiratory Respiratory: bilateral: CTA - Cardiovascular Rhythm: regular Heart sounds: normal: S1, S2 - Labs CBC & Chem 7: 03/07/18 04:38 03/07/18 04:38 Labs: Abnormal Lab Results - Last 24 Hours (Table) 03/07/18 03/07/18 Range/Units 04:38 04:38 RBC 3.77 L (3.80-5.40) m/uL Hgb 10.7 L (11.4-16.0) gm/dL Hct 33.7 L (34.0-46.0) % Chloride 108 H (98-107) mmol/L Glucose 100 H (74-99) mg/dL Assessment and Plan Assessment: Assessment #1 gastrointestinal bleeding of unknown etiology at this point #2 CAD and status post RCA stenting #3 hypertension #4 dyslipidemia Plan #1 continue the current medical regimen with Plavix as well as baby aspirin #2 continue monitor the hemoglobin #3 the patient can be discharged home.
[2018-03-07] MEDS: ONDANSETRON 4 MG/2 ML VIAL IVP PRN (08:01)
[2018-03-07] MEDS: ASPIRIN 81 MG PO SCH (08:01)
[2018-03-07] MEDS: METOPROLOL TARTRATE 12.5 MG TAB PO SCH (08:01)
[2018-03-07] MEDS: PANTOPRAZOLE 40 MG/10 ML VIAL IVP SCH (08:01)
[2018-03-07] MEDS: CLOPIDOGREL 75 MG TAB PO SCH (08:01)
--- NOTE | 2018-03-07 09:38 | P.PN ---
Subjective Progress Note Date: 03/07/18 Principal diagnosis: Gastrointestinal bleeding This is a very pleasant 62-year-old female patient who follows with Dr. Montesinos as her primary care physician. She has a history of hypertension, hyperlipidemia, gastroesophageal reflux disease. Chest has a significant history of coronary artery disease and is status post coronary artery bypass grafting in 2001. She had recently undergone cardiac catheterization in October 2017 and was found to have a totally occluded left main with no antegrade flow, chronically occluded right coronary artery with ipsilateral collaterals, patent DE JESUS to the circumflex and patent SHELLY to LAD, patent saphenous vein graft to diagonal branch. Normal left ventricular size and systolic function. An attempt to open the RCA was unsuccessful. She was subsequently referred to [facility] and on 01/02/2018 underwent a rotator procedure to open the coronary artery. On 03/01/18 she received 3 stent placements. Details of which are not available at this time. She had ongoing left arm discomfort and on 03/02/2018 she had another catheterization all stents were patent. She was initiated on aspirin and Mylanta. She was also given 1 dose of Plavix on 2017. She presented to [facility] last evening after having 6 bright red bowel movements at home. She had a seventh one earlier today. Based on the GI bleeding she was transferred here to the emergency room. Hemoglobin 11.9. She is seen today in consultation in the intensive care unit. She is currently awake and alert in no acute distress. She denies any chest pain, palpitations lightheadedness or dizziness. Her troponin is found to be 6.41. EKG shows a right bundle branch block pattern. She denies any shortness of breath, cough or congestion. She is maintaining O2 saturations in the mid 90s on room air. She's afebrile. Currently hemodynamically stable. She does have a history of diverticulosis. She had a colonoscopy 4 years ago that was reported as normal according to the patient. She has been typed and crossmatched. The patient is seen again today 03/07/2018 in follow-up in the intensive care unit. She is awake and alert in no acute distress. She's not had any further bleeding. She's had an normal bowel movement. She has been resumed on Plavix and aspirin. She denies any shortness of breath, cough or congestion. No chest pain, dizziness or lightheadedness. She is maintaining good O2 saturations in the mid 90s on room air. She's been afebrile. Hemodynamically stable. Objective - Vital Signs Vital signs: Vital Signs Temp 99.1 F 03/07/18 08:00 Pulse 81 03/07/18 09:00 Resp 23 03/07/18 09:00 BP 133/59 03/07/18 09:00 Pulse Ox 95 03/07/18 09:00 Intake & Output 03/06/18 03/07/18 03/07/18 18:59 06:59 18:59 Intake Total 1310 80 Output Total 700 Balance 610 80 Weight 80.4 kg Intake: IV 110 80 .9 110 80 Oral 1200 Output: Urine 700 Other: Voiding Method Bedside Commode Bedside Commode Bedside Commode # Voids 0 1 # Bowel Movements 0 - Exam GENERAL EXAM: Alert, active, comfortable in no apparent distress. HEAD: Normocephalic. EYES: Normal reaction of pupils, equal size. NOSE: Clear with pink turbinates. THROAT: No erythema or exudates. NECK: No masses, no JVD. CHEST: No chest wall deformity. LUNGS: Equal air entry with no crackles, wheeze, rhonchi or dullness. CVS: S1 and S2 normal with no audible murmur, regular rhythm. ABDOMEN: No hepatosplenomegaly, normal bowel sounds, no guarding or rigidity. SPINE: No scoliosis or deformity SKIN: No rashes CENTRAL NERVOUS SYSTEM: No focal deficits, tone is normal in all 4 extremities. EXTREMITIES: There is no peripheral edema. No clubbing, no cyanosis. Peripheral pulses are intact. - Labs CBC & Chem 7: 03/07/18 04:38 03/07/18 04:38 Labs: Abnormal Lab Results - Last 24 Hours (Table) 03/07/18 03/07/18 Range/Units 04:38 04:38 RBC 3.77 L (3.80-5.40) m/uL Hgb 10.7 L (11.4-16.0) gm/dL Hct 33.7 L (34.0-46.0) % Chloride 108 H (98-107) mmol/L Glucose 100 H (74-99) mg/dL Assessment and Plan Assessment: Impression: #1 Acute lower gastrointestinal bleeding of unclear etiology. Suspect diverticuli is present does have a history of diverticulosis. Colonoscopy 4 years ago was reported as normal. #2 Coronary artery disease with 3 stents placed on 03/01/2018 and was initiated on aspirin and Brilinta. Repeat catheterization on 03/02/2018 showed patent stents and one additional Plavix tablet was given that day. #3 Prior history of coronary artery disease with coronary artery bypass grafting in 2001. #4 Hyperlipidemia. #5 Hypertension. #6 History of gastroesophageal reflux disease. Plan: The patient was seen and evaluated by Dr. Deluca. She remains stable from the pulmonary and critical care standpoint. No further bleeding. She is resumed on aspirin and Plavix. She is cleared for discharge once cleared by cardiology. I, the cosigning physician, performed a history & physical examination of the patient. Lungs sounds are clear. Maintaining good O2 saturations in the 90s on room air. I discussed the assessment and plan of care with my nurse practitioner, Milady Zamora. I attest to the above note as dictated by her.
--- NOTE | 2018-03-07 11:48 | P.PN ---
Subjective Progress Note Date: 03/07/18 Principal diagnosis: Hematochezia anemia acute blood loss Feels well. Denies abdominal pain. Past nonbloody vomiting this morning. Hemoglobin 10.7. Afebrile. Objective - Vital Signs Vital signs: Vital Signs Temp 99.1 F 03/07/18 08:00 Pulse 65 03/07/18 11:00 Resp 15 03/07/18 11:00 BP 116/54 03/07/18 11:00 Pulse Ox 97 03/07/18 11:00 Intake & Output 03/06/18 03/07/18 03/07/18 18:59 06:59 18:59 Intake Total 1310 80 Output Total 700 Balance 610 80 Weight 80.4 kg Intake: IV 110 80 .9 110 80 Oral 1200 Output: Urine 700 Other: Voiding Method Bedside Commode Bedside Commode Bedside Commode # Voids 0 1 1 # Bowel Movements 0 1 - Exam General appearance: The patient is alert, oriented, in no acute distress. HET: Head is normocephalic and atraumatic. Pupils are equal and reactive. Oropharynx is clear without lesions. Neck: Supple without lymphadenopathy. Trachea midline. Heart: S1 S2. Regular rate and rhythm. Lungs: No crackles or wheezes are heard. Abdomen: Soft, nontender, nondistended with bowel sounds. No peritoneal signs. No palpable organomegaly or masses. Extremities: Normal skin color and turgor. No cyanosis, rash, ulceration, clubbing, or edema. Radial and pedal pulses are 2/4 bilaterally. Neurological: No focal deficits. Strength and sensation are grossly intact. - Labs CBC & Chem 7: 03/07/18 04:38 03/07/18 04:38 Labs: Abnormal Lab Results - Last 24 Hours (Table) 03/07/18 03/07/18 Range/Units 04:38 04:38 RBC 3.77 L (3.80-5.40) m/uL Hgb 10.7 L (11.4-16.0) gm/dL Hct 33.7 L (34.0-46.0) % Chloride 108 H (98-107) mmol/L Glucose 100 H (74-99) mg/dL Assessment and Plan (1) Anemia, blood loss Narrative/Plan: Anemia of acute blood loss secondary to GI bleed with patient presented with essentially painless bright red blood per rectum possible colonic diverticular bleed possible hemorrhoidal hematochezia since resolved present hemoglobin is 10.7. Current Visit: Yes Status: Acute Code(s): D50.0 - IRON DEFICIENCY ANEMIA SECONDARY TO BLOOD LOSS (CHRONIC) SNOMED Code(s): 090334353 (2) Lower GI bleed Current Visit: Yes Status: Acute Code(s): K92.2 - GASTROINTESTINAL HEMORRHAGE, UNSPECIFIED SNOMED Code(s): 15845896 Plan: Agreeable for discharge. Diet as tolerated. May restart antiplatelet and anticoagulation secondary to recent heart catheterization with PCI stent. Return to office in 2-3 weeks for reevaluation. Assessment and plan a care discussed with Dr. tena
[2018-03-07 13:14] VITALS: BP 115/51; PULSE 81; RESP 18; TEMP 98.7
--- NOTE | 2018-03-08 16:33 | P.DS ---
Providers Date of admission: 03/04/18 07:32 Expected date of discharge: 03/07/18 Attending physician: Zahira Shrestha Consults: 03/04/18 07:30 Consult Physician Stat Consulting Provider: Julio Parra Consult Reason/Comments: GIB Do you want consulting provider notified?: Already Contacted Consult Physician Stat Consulting Provider: Jan Hayes Consult Reason/Comments: established patinet, anticoagulated with GIB Do you want consulting provider notified?: Already Contacted Primary care physician: Aries Condon [facility] Course: Bryan diagnosis #1 Acute lower gastrointestinal bleeding possible diverticular versus internal hemorrhoids. Patient does have painless.. Hemoglobin is stable now. #2 acute blood loss anemia. #2 Coronary artery disease with 3 stents placed on 03/01/2018 and was initiated on aspirin and Plavix. Repeat catheterization on 03/02/2018 showed patent stents and one additional Plavix tablet was given that day. #3 Prior history of coronary artery disease with coronary artery bypass grafting in 2001; - continue with aspirin, Plavix, statins and beta blockers #4 Hyperlipidemia. - Continue with home dose of Lipitor 40 mg daily at bedtime #5 Hypertension; - remains stable on metoprolol 12.5 mg twice a day - Continue to monitor blood pressure closely and make adjustments if needed #6 History of gastroesophageal reflux disease; remains on Protonix Hospital course This is a very pleasant 62-year-old female patient who follows with Dr. Montesinos as her primary care physician. She has a history of hypertension, hyperlipidemia, gastroesophageal reflux disease; significant history of coronary artery disease and is status post coronary artery bypass grafting in 2001. She had recently undergone cardiac catheterization in October 2017 and was found to have a totally occluded left main with no antegrade flow, chronically occluded right coronary artery with ipsilateral collaterals, patent DE JESUS to the circumflex and patent SHELLY to LAD, patent saphenous vein graft to diagonal branch. Normal left ventricular size and systolic function. An attempt to open the RCA was unsuccessful. She was subsequently referred to [facility] and on 01/02/2018 underwent a rotator procedure to open the coronary artery. On 03/01/18 she received 3 stent placements. Details of which are not available at this time. She had ongoing left arm discomfort and on 03/02/2018 she had another catheterization all stents were patent. She was initiated on aspirin and Mylanta. She was also given 1 dose of Plavix on 03/02/2018. She presented to [facility] after having 6 bright red bowel movements at home. She had a seventh one earlier yesterday. Based on the GI bleeding she was transferred here to the emergency room. Hemoglobin 11.9. She is seen today in consultation in the intensive care unit. 03/05/2018 She is currently awake and alert in no acute distress. She denies any chest pain, palpitations lightheadedness or dizziness. Her troponin is found to be 6.41. EKG shows a right bundle branch block pattern. She denies any shortness of breath, cough or congestion. She is maintaining O2 saturations in the mid 90s on room air. She's afebrile. Currently hemodynamically stable. She does have a history of diverticulosis. She had a colonoscopy 4 years ago that was reported as normal according to the patient. She has been typed and crossmatched. Today's hemoglobin is 10.9. Patient has not had any further episodes of GI bleeding since yesterday. She was restarted on Plavix yesterday per cardiology. She was seen by GI service. 03/06/2018 patient seen in follow-up in the intensive care unit. She is awake alert, oriented 3, in no acute distress, denies any chest pain or shortness of breath. Room air pulse ox is 95%, afebrile. She has had no recurrence of GI bleeding since the initiation of Plavix, current dose of aspirin is 81 mg. Today's labs have been reviewed, the WBC 6.6, hemoglobin is 10.7, Platelet s are 237, electrolytes and renal profile are normal. No new chest x-rays. Increase activity as tolerated. No acute events overnight. Patient can be transferred out of the intensive care unit to selective care unit. 03/07/2018 Patient denied any complaints of chest pain or shortness of breath. Awake alert and oriented 3. Hemodynamically stable. Patient is cleared from cardiology standpoint to be discharged home. Brillanta has been changed to Plavix and metoprolol dose was reduced to 12.5 mg twice a day. No complaints of fever or chills. No acute overnight issues. Patient is stable to be discharged home. PHYSICAL EXAMINATION: Patient is lying in the bed comfortably, no acute distress, awake alert and oriented.. HEENT: Normocephalic. Neck is supple. Pupils reactive. Nostrils clear. Oral cavity is moist. Ears reveal no drainage. Neck reveals no JVD, carotid bruits, or thyromegaly. CHEST EXAMINATION: Trachea is central. Symmetrical expansion. Lung sears clear to auscultation and percussion. CARDIAC: Normal S1, S2 with no gallops. No murmurs ABDOMEN: Soft. Bowel sounds normal. No organomegaly. No abdominal bruits. Extremities: reveal no edema. No clubbing or cyanosis Neurologically awake, alert, oriented x3 with well-coordinated movements. No focal deficits noted Skin: No rash or skin lesions. Psychiatric: Coperative. Nonsuicidal Musculoskeletal: No joint swelling or deformity. Normal range of motion. Vital Signs 03/04/18 03/04/18 03/04/18 05:06 05:20 05:40 Temperature 99 F Pulse Rate 85 73 83 Respiratory 16 16 11 L Rate Blood Pressure 138/76 138/76 158/75 O2 Sat by Pulse 96 97 97 Oximetry 03/04/18 03/04/18 03/04/18 06:40 06:58 08:14 Temperature 99.1 F Pulse Rate 78 89 81 Respiratory 16 16 18 Rate Blood Pressure 155/72 146/89 O2 Sat by Pulse 97 97 95 Oximetry 03/04/18 03/04/18 03/04/18 09:20 09:30 09:40 Temperature Pulse Rate 80 85 86 Respiratory 12 14 16 Rate Blood Pressure 133/74 O2 Sat by Pulse 95 95 94 L Oximetry 03/04/18 03/04/18 03/04/18 09:50 10:00 10:30 Temperature 98.7 F Pulse Rate 76 78 80 Respiratory 15 17 15 Rate Blood Pressure 136/74 130/68 O2 Sat by Pulse 95 95 96 Oximetry 03/04/18 03/04/18 03/04/18 11:00 11:30 12:00 Temperature 98.7 F Pulse Rate 86 77 82 Respiratory 14 12 17 Rate Blood Pressure 134/72 124/69 144/66 O2 Sat by Pulse 96 95 95 Oximetry 03/04/18 03/04/18 03/04/18 12:30 13:00 13:30 Temperature Pulse Rate 84 85 80 Respiratory 21 12 22 Rate Blood Pressure 139/54 144/74 148/65 O2 Sat by Pulse 96 96 93 L Oximetry 03/04/18 03/04/18 03/04/18 14:00 14:30 15:00 Temperature Pulse Rate 87 78 80 Respiratory 19 21 21 Rate Blood Pressure 143/68 142/62 137/63 O2 Sat by Pulse 94 L 95 95 Oximetry 03/04/18 03/04/18 03/04/18 15:30 16:00 16:30 Temperature 98.7 F Pulse Rate 84 80 79 Respiratory 13 14 15 Rate Blood Pressure 128/65 133/64 138/62 O2 Sat by Pulse 96 96 94 L Oximetry 03/04/18 03/04/18 03/04/18 17:00 17:30 18:00 Temperature Pulse Rate 78 91 93 Respiratory 17 23 17 Rate Blood Pressure 122/71 126/54 140/54 O2 Sat by Pulse 94 L 94 L 95 Oximetry 03/04/18 03/04/18 03/04/18 18:30 19:00 20:00 Temperature 98.1 F Pulse Rate 85 82 79 Respiratory 20 16 20 Rate Blood Pressure 129/56 141/67 135/65 O2 Sat by Pulse 95 93 L 95 Oximetry 03/04/18 03/04/18 03/04/18 21:00 22:00 23:00 Temperature Pulse Rate 81 79 73 Respiratory 19 19 20 Rate Blood Pressure 137/53 138/66 129/64 O2 Sat by Pulse 95 93 L 97 Oximetry 03/05/18 03/05/18 03/05/18 00:00 00:12 01:00 Temperature 98.4 F Pulse Rate 84 75 75 Respiratory 16 17 18 Rate Blood Pressure 117/54 138/63 128/51 O2 Sat by Pulse 97 98 98 Oximetry 03/05/18 03/05/18 03/05/18 02:00 03:00 04:00 Temperature Pulse Rate 79 80 74 Respiratory 19 18 17 Rate Blood Pressure 122/42 124/55 117/54 O2 Sat by Pulse 96 98 97 Oximetry 03/05/18 03/05/18 03/05/18 05:00 06:00 07:00 Temperature Pulse Rate 84 73 74 Respiratory 19 17 18 Rate Blood Pressure 118/57 115/59 123/52 O2 Sat by Pulse 93 L 95 95 Oximetry 03/05/18 03/05/18 03/05/18 08:00 09:00 10:00 Temperature 98.2 F Pulse Rate 86 87 65 Respiratory 11 L 13 14 Rate Blood Pressure 119/58 128/54 125/58 O2 Sat by Pulse 95 95 95 Oximetry 03/05/18 03/05/18 03/05/18 11:00 12:00 13:00 Temperature Pulse Rate 67 74 81 Respiratory 11 L 12 18 Rate Blood Pressure 112/55 125/63 117/61 O2 Sat by Pulse 95 95 95 Oximetry 03/05/18 03/05/18 03/05/18 14:00 15:00 16:00 Temperature Pulse Rate 84 75 73 Respiratory 21 16 14 Rate Blood Pressure 122/67 136/60 125/54 O2 Sat by Pulse 94 L 95 96 Oximetry 03/05/18 03/05/18 03/05/18 17:00 18:00 20:00 Temperature 98.5 F 98.2 F Pulse Rate 90 98 84 Respiratory 12 15 19 Rate Blood Pressure 119/57 129/60 125/52 O2 Sat by Pulse 96 94 L 94 L Oximetry 03/05/18 03/05/18 03/05/18 21:00 22:00 23:00 Temperature Pulse Rate 81 81 71 Respiratory 30 H 19 14 Rate Blood Pressure 118/52 115/50 125/51 O2 Sat by Pulse 94 L 94 L 96 Oximetry 03/06/18 03/06/18 03/06/18 00:00 01:00 02:00 Temperature 98.3 F Pulse Rate 71 68 68 Respiratory 21 17 16 Rate Blood Pressure 117/54 119/59 122/59 O2 Sat by Pulse 92 L 97 96 Oximetry 03/06/18 03/06/18 03/06/18 03:00 04:00 05:00 Temperature 98.2 F Pulse Rate 64 71 66 Respiratory 18 18 16 Rate Blood Pressure 113/51 103/50 112/56 O2 Sat by Pulse 94 L 93 L 94 L Oximetry 03/06/18 03/06/18 03/06/18 06:00 07:00 08:00 Temperature 98.2 F Pulse Rate 73 73 76 Respiratory 14 16 23 Rate Blood Pressure 107/56 119/58 120/58 O2 Sat by Pulse 95 92 L 96 Oximetry 03/06/18 03/06/18 03/06/18 09:00 10:00 11:00 Temperature Pulse Rate 80 80 73 Respiratory 16 13 13 Rate Blood Pressure 131/54 132/51 135/59 O2 Sat by Pulse 96 95 95 Oximetry 03/06/18 03/06/18 03/06/18 12:00 13:00 16:00 Temperature 98.6 F 98.1 F Pulse Rate 69 76 89 Respiratory 12 20 13 Rate Blood Pressure 132/61 132/61 114/51 O2 Sat by Pulse 96 96 94 L Oximetry 03/06/18 03/06/18 03/06/18 20:00 21:00 22:00 Temperature Pulse Rate 85 80 72 Respiratory 18 18 19 Rate Blood Pressure 117/50 113/51 114/47 O2 Sat by Pulse 94 L 94 L 93 L Oximetry 03/06/18 03/06/18 03/07/18 23:00 23:04 00:00 Temperature 98.6 F Pulse Rate 71 69 71 Respiratory 22 19 18 Rate Blood Pressure 122/53 113/55 113/55 O2 Sat by Pulse 92 L 93 L 95 Oximetry 03/07/18 03/07/18 03/07/18 01:00 02:00 03:00 Temperature Pulse Rate 70 63 59 L Respiratory 19 20 18 Rate Blood Pressure 103/51 119/47 106/47 O2 Sat by Pulse 93 L 94 L 94 L Oximetry 03/07/18 03/07/18 03/07/18 04:00 05:00 06:00 Temperature 98.4 F Pulse Rate 59 L 64 71 Respiratory 19 19 15 Rate Blood Pressure 106/50 128/60 139/64 O2 Sat by Pulse 94 L 93 L 94 L Oximetry 03/07/18 03/07/18 03/07/18 07:00 08:00 09:00 Temperature 99.1 F Pulse Rate 67 81 81 Respiratory 18 14 23 Rate Blood Pressure 126/53 136/51 133/59 O2 Sat by Pulse 94 L 96 95 Oximetry 03/07/18 03/07/18 03/07/18 10:00 11:00 12:00 Temperature 98.7 F Pulse Rate 76 65 62 Respiratory 20 15 16 Rate Blood Pressure 125/53 116/54 108/52 O2 Sat by Pulse 96 97 96 Oximetry 03/07/18 13:00 Temperature Pulse Rate 81 Respiratory 18 Rate Blood Pressure 115/51 O2 Sat by Pulse 97 Oximetry Patient Condition at Discharge: Stable Plan - Discharge Summary Discharge Rx Participant: Yes New Discharge Prescriptions: New Clopidogrel [Plavix] 75 mg PO DAILY tab Metoprolol Tartrate [Lopressor] 12.5 mg PO BID #60 tab Continue Glucosamine Sulfate 500 mg PO DAILY Atorvastatin [Lipitor] 40 mg PO HS Ranitidine HCl [Zantac] 150 mg PO BID Nitroglycerin Sl Tabs [Nitrostat] 0.4 mg PO Q5M PRN PRN Reason: Chest Pain Aspirin EC [Ecotrin Low Dose] 81 mg PO DAILY Discontinued Metoprolol Tartrate [Lopressor] 50 mg PO BID Lisinopril [Zestril] 5 mg PO HS Ticagrelor [Brilinta] 90 mg PO BID Discharge Medication List Atorvastatin [Lipitor] 40 mg PO HS 10/21/17 [History] Glucosamine Sulfate 500 mg PO DAILY 10/21/17 [History] Nitroglycerin Sl Tabs [Nitrostat] 0.4 mg PO Q5M PRN 10/21/17 [History] Ranitidine HCl [Zantac] 150 mg PO BID 10/21/17 [History] Aspirin EC [Ecotrin Low Dose] 81 mg PO DAILY 03/04/18 [History] Clopidogrel [Plavix] 75 mg PO DAILY tab 03/07/18 [Rx] Metoprolol Tartrate [Lopressor] 12.5 mg PO BID #60 tab 03/07/18 [Rx] Follow up Appointment(s)/Referral(s): Aries Trujillo MD [Primary Care Provider] - 1-2 days Jorge A Posada MD [STAFF PHYSICIAN] - 2 Weeks Discharge Disposition: HOME SELF-CARE
== END 2018-03-07 14:10 | disposition home or self-care (01) ==
LOC: EC 05:05 → 2SICU 07:32 → INTOOBSV 07:32 → UNDODISIN 03-07 14:10
PROVIDERS: ADMIT Hospitalist; ATTEND Hospitalist
DX: K92.2 Gastrointestinal hemorrhage, unspecified (principal); D62 Acute posthemorrhagic anemia; E78.5 Hyperlipidemia, unspecified; F41.9 Anxiety disorder, unspecified; I10 Essential (primary) hypertension; R74.8 Abnormal levels of other serum enzymes; I25.10 Atherosclerotic heart disease of native coronary artery without angina pectoris; I45.10 Unspecified right bundle-branch block; K21.9 Gastro-esophageal reflux disease without esophagitis; Z79.02 Long term (current) use of antithrombotics/antiplatelets; Z79.82 Long term (current) use of aspirin; Z79.899 Other long term (current) drug therapy; Z95.1 Presence of aortocoronary bypass graft; Z95.5 Presence of coronary angioplasty implant and graft; Z91.040 Latex allergy status; Z82.49 Family history of ischemic heart disease and other diseases of the circulatory system; Z82.5 Family history of asthma and other chronic lower respiratory diseases; Z80.49 Family history of malignant neoplasm of other genital organs; H91.90 Unspecified hearing loss, unspecified ear
CPT/HCPCS: 96376 ×4; 96365; 96366; 96375; 99285; 36415; 93005; 86900; 86901; 80053; 80048 ×3; 83735 ×2; 84100 ×2; 84484; 85025 ×4; 85027; 85610; 85730; 86850; 71045; G0378 ×4; J2405 ×2; J3475; C9113 ×4